=== PATIENT | female | born 1960 | race Caucasian/White ===

== ENCOUNTER → 2016-12-26 | Outpatient (CLI) | payer BC ==
[~2016-12-26] MED LIST: ALLGUNK; ASPUNK; CLXUNK; FRRS300; LMCUNK; PRTUNK; ZCRUNK
== END | disposition home or self-care (01) ==
LOC: C.LABMFLN 11:44
PROVIDERS: ATTEND Psychiatry & Neurology Neurology
DX: G40.219 Localization-related (focal) (partial) symptomatic epilepsy and epileptic syndromes with complex partial seizures, intractable, without status epilepticus (principal)

== ENCOUNTER → 2017-01-16 | Outpatient (CLI) | payer BC | END | disposition home or self-care (01) | LOC: C.PATHSPEC 10:57 | PROVIDERS: ATTEND Family Medicine | DX: L98.0 Pyogenic granuloma (principal) ==

== ENCOUNTER → 2017-07-07 | Outpatient (CLI) | payer BC ==
[2017-07-07 13:44] LABS: BASO % 0.8 %; BASO ABS # 0.04 K/uL (0-0.2); COMPLETE YES; HEMATOCRIT 38.4 % (37-47); LYMPH % 26.4 %; LYMPH ABS # 1.31 K/uL (1.2-3.4); MEAN CELL VOLUME 92.1 fL (80-100); MEAN CORPUSCULAR HEMOGLOBIN 32.4 pg (25-34); MEAN CORPUSCULAR HGB CONC 35.2 g/dl (32-36); MEAN PLATELET VOLUME 10.2 fL (7.4-10.4); MONO % 5.4 %; NEUT % 63.4 %; PLATELET COUNT 178 K/uL (130-400); RED BLOOD COUNT 4.17 M/uL (4.2-5.4); WHITE BLOOD COUNT 4.97 K/uL (4.8-10.8)
[2017-07-07 15:19] LABS: BLOOD UREA NITROGEN 10 mg/dl (7-18); BUN/CREATININE RATIO 12.8 (10-20); CALCIUM 9.2 mg/dl (8.5-10.1); CARBON DIOXIDE 26 mmol/L (21-32); CHLORIDE 103 mmol/L (98-107); CREATININE 0.78 mg/dl (0.60-1.20); GLUCOSE 96 mg/dl (70-99); POTASSIUM 3.9 mmol/L (3.5-5.1); SODIUM 136 mmol/L (136-145)
[2017-07-07 15:22] LABS: ALB/GLOB RATIO 1.1 (0.9-2); ALKALINE PHOSPHATASE 104 U/L (45-117); ALT/SGPT 23 U/L (12-78); AST/SGOT 17 U/L (15-37)
== END | disposition home or self-care (01) ==
LOC: C.LABMFLN 11:37
PROVIDERS: ATTEND Psychiatry & Neurology Neurology
DX: G40.109 Localization-related (focal) (partial) symptomatic epilepsy and epileptic syndromes with simple partial seizures, not intractable, without status epilepticus (principal)

== ENCOUNTER → 2017-09-01 | Outpatient (CLI) | payer BC | END | disposition home or self-care (01) | LOC: C.LABMFLN 11:30 | PROVIDERS: ATTEND Family Medicine | DX: J02.9 Acute pharyngitis, unspecified (principal) ==

== ENCOUNTER → 2017-09-23 | Outpatient (CLI) | payer BC | END | disposition home or self-care (01) | LOC: C.LABMFLN 16:03 | PROVIDERS: ATTEND Psychiatry & Neurology Neurology | DX: G40.909 Epilepsy, unspecified, not intractable, without status epilepticus (principal) ==

== ENCOUNTER 2022-10-31 12:14 | Inpatient (IN) ==
[2022-10-31] MEDS ORDERED: ONDANSETRON INJ 2 MG/ML 2 ML VIAL IV STA (13:30)
--- NOTE | 2022-10-31 14:33 | CT Scan Report ---
CT head/brain wo con CLINICAL HISTORY: Stroke Alert Technique: Contiguous axial CT images of the head were acquired from the base of the skull to the agusto ashley without intravenous contrast administration. Images were viewed in brain, subdural and bone [facility] ws. Automated dose lowering techniques and/or adjustment according to patient size were utilized for this exam. Comparison: None available at the time of this dictation. Findings: Old encephalomalacia is in the left temporal lobe with associated postsurgical changes of the calvari um. Atherosclerotic disease is seen in the carotid siphons and vertebral arteries. Linear calcific de nsity in the right posterior fossa is nonspecific and likely chronic Imaged portions of the paranasal sinuses and mastoid air cells are clear. The orbits appear normal. There are no acute fractures of the calvaria or scalp swelling. Impression: Old left postsurgical changes and encephalomalacia. No acute abnormalities and in particular no evide nce of infarct or hemorrhage. ACT 112: Negative or not required by law. Electronically signed by: Acosta Coleman M.D. 10/31/2022 2:31 PM
[2022-10-31 16:53] LABS: Hematocrit (blood only) 38.3 % (34.1-44.9); Hemoglobin 12.8 g/dl (12.0-16.0); Mean Corpuscular Hemoglobin 31.4 pg (25.0-34.0); Mean Corpuscular Hgb Conc 33.4 g/dL (32.0-36.0); Mean Corpuscular Volume 94.1 fL (80.0-100.0); Mean Platelet Volume 10.7 fL (9.4-12.3); Platelet Count 145 K/uL (130-400); RDW Coefficient of Variation 13.2 % (11.5-14.5); RDW Standard Deviation 45.1 fL (36.4-46.3); Red Blood Count 4.07 M/uL (3.93-5.22)
[2022-10-31 17:10] LABS: Partial Thromboplastin Time 28.5 Seconds (21.0-31.0); Prothrombin Time 10.7 Seconds (9.0-12.0)
[2022-10-31 17:15] LABS: Alanine Aminotransferase 10 U/L (7-52); Albumin Globulin Ratio 1.4 (0.9-2); Albumin Level 4.2 gm/dl (3.4-5.0); Alkaline Phosphatase 107 U/L (34-104); Anion Gap 9 (3-11); Aspartate Aminotransferase 23 U/L (13-39); BUN Creatinine Ratio 15.4 (10-20); Bilirubin,Total 0.8 mg/dl (0.2-1.0); Blood Urea Nitrogen 16 mg/dl (6-23); Carbon Dioxide 23 mmol/L (21-32); Chloride 106 mmol/L (98-107); Est GFR (African American) 65.8 ml/min; Est GFR (Non-African American) 56.7 ml/min; Globulin 3.1 gm/dl (2.5-4.0); Glucose 106 mg/dl (70-99(Fasting)); Magnesium 2.2 mg/dl (1.7-2.4); Potassium 3.2 mmol/L (3.5-5.1); Sodium 138 mmol/L (136-145); Total Protein 7.3 gm/dl (6.0-8.3)
[2022-10-31] MEDS ORDERED: ONDANSETRON INJ 2 MG/ML 2 ML VIAL ONE (17:15)
--- NOTE | 2022-10-31 18:12 | Emergency Department Note ---
Impression & Plan Ataxia, Dizziness ED Provider Note NAME: FRANCES KEVIN AGE: 62 SEX: F : 1960 ARRIVES VIA: Walk-In INFORMANT: Patient, ED PROVIDER(S): Gage Jean DO CHIEF COMPLAINT: Ataxia HPI: The patient is a 62-year-old female who presented to the emergency department for an evaluation of dizziness and weakness. The patient has had problems for the last 2 days with ambulation. Her significant other states that she has been having problems with ambulation and seems to be following to the side. She seems to be very off balance. She has had no headache. She has had no vomiting. She reports no seizure activity. She has a vagal nerve stimulator which was implanted for seizures. She denies having any vomiting. She is often seen by her family doctor for the symptoms. ROS: See above HPI for pertinent positives & negatives. A total of 10 systems reviewed and were otherwise negative. PAST MEDICAL HISTORY: See Below PAST SURGICAL HISTORY: See Below FAMILY HISTORY: See Below SOCIAL HISTORY: See Below HOME MEDICATIONS: See Below ALLERGIES: See Below VITALS: See Below PHYSICAL EXAMINATION: GENERAL: Patient is awake alert in no acute distress patient is resting comfortably and showing no signs of anxiety EYES: The conjunctivae are clear. The pupils are round and reactive. EARS, NOSE, MOUTH AND THROAT: The nose is without any evidence of any deformity. NECK: The neck is nontender and supple. RESPIRATORY: Normal respiratory effort is noted there is no evidence of wheezing rhonchi or rales CARDIOVASCULAR: Regular rate and rhythm noted there no murmurs rubs or gallops normal S1 normal S2. GASTROINTESTINAL: The abdomen is soft. Abdomen is nontender. MUSCULOSKELETAL/EXTREMITIES: There is no evidence of gross deformity full range of motion is noted in the hips and shoulders. SKIN: There is no obvious evidence of any rash. There are no petechiae, pallor or cyanosis noted. NEUROLOGIC: Patient is awake alert and oriented x3. The patient is able to hold each leg off the bed for greater than 5 seconds. There was nystagmus looking to the left. MEDICAL DECISION MAKING: The patient is a 62-year-old female who presented to the emergency department for an evaluation of ataxia. The patient's had a history of vertigo in the past but states this feels different. The patient did not have any focal neurologic deficit on my exam but did have some nystagmus and when she tried to ambulate appeared to be very off balance. I discussed patient's laboratory and radiographic studies with her. She was reevaluated multiple times. It is difficult to do a complete neurologic work-up on this patient given her history of vagal nerve stimulator. I discussed her condition with the on-call [facility]. They have agreed to evaluate the patient in the emergency department for further management and disposition. Is possible she may require further inpatient work-up to determine the cause of the symptoms. Triage Nursing notes reviewed. Prior medical records reviewed Vital Signs: reviewed and remarkable for hypotension. Differential diagnosis: Benign positional vertigo, dehydration, hypovolemia, anemia, tumor, infection, hypoglycemia, electrolyte abnormalities, cardiac sources, intracerebral event, toxicologic, neurologic, as well as other pathologies. ER treatment provided: See below Diagnostics interpreted by me: ECG: EKG was obtained in the emergency department. My interpretation is normal sinus rhythm at 80 bpm. There is no ectopy. Nonspecific ST abnormalities were noted. Early transition was noted. No previous tracing was available. Cardiac Monitoring: An order was placed for continuous cardiac monitoring. The monitor shows a rate of 90 bpm with sinus rhythm. Laboratory studies: As stated above and show below. Imaging studies: See below Consultation(s): I discussed this case with Dr. Weeks who is on-call for the [facility]. Past Med/Surg History Medical History Abnormal weight loss Change in bowel habit Chronic GERD Chronic headaches Diarrhea Diplopia Dysuria Herpes zoster History of Clostridioides difficile colitis Hypokalemia Intractable seizure disorder Nausea and vomiting Nausea and vomiting Seizure disorder Shingles (herpes zoster) polyneuropathy Vertigo Vertigo Surgical History History of section History of mandibular surgery History of sinus surgery History of tubal ligation Family History Mother Thyroid disease Brother Thyroid disease Social History Smoking Status: Never smoker Hx Alcohol Use: No Hx Substance Use: No Preferred Language: Turkmen Communication Ability: Effective Visual Impairment: No Limitations Hearing Ability: Normal Director Of Curriculum And Instruction Required: No Beliefs That Will Affect Care: None marital status: Current Living Situation: Spouse Feels Safe at Home: Yes Safety Concerns: Feels Safe At This Time Dental Care, Regularly: Yes Seatbelt Use: always Sunscreen Use: Yes Assistive Devices: Glasses and Walker Allergies Allergies Allergy/AdvReac Type Severity Reaction Status Date / Time hydroxyzine Allergy Unknown unknown rxn Verified 01/10/22 13:18 prednisone Allergy Unknown unknown rxn Verified 01/10/22 13:18 paroxetine AdvReac Fatigued Verified 01/10/22 13:18 Home Meds Home Medications Medication Instructions Recorded Confirmed multivitamin (Multiple Vitamins 1 tab PO DAILY 05/10/19 10/31/22 tablet) clonazepam 0.5 mg disintegrating See Rx Instructions PO .COMPLEX 05/12/19 10/31/22 tablet clobazam 10 mg tablet (Onfi) See Rx Instructions PO BID 11/01/19 10/31/22 zonisamide 100 mg capsule 200 mg PO BID 01/14/21 10/31/22 (Zonegran) glucosamine sulf dipot 1 cap PO DAILY 10/31/22 10/31/22 chlr,msm,chond 550 mg-C 30 mg-chalino 1 mg capsule (Glucosamine Chondroitin) Previous Rx's Medication Instructions Recorded fexofenadine 60 mg tablet (Anusha 60 mg PO DAILY #60 tabs 05/09/19 Allergy) lamotrigine 300 mg tablet,extended 300 mg PO BID #60 tabs 01/14/21 release 24 hr lamotrigine 50 mg tablet,extended 50 mg PO .COMPLEX #270 tabs 01/14/21 release 24 hr atorvastatin 80 mg tablet 80 mg PO QPM #90 tabs 04/02/21 venlafaxine 37.5 mg tablet 37.5 mg PO DAILY #90 tabs 06/11/21 meclizine 25 mg tablet 25 mg PO TID PRN dizziness #90 tabs 01/10/22 ondansetron HCl 8 mg tablet 8 mg PO Q8H PRN nausea and 01/10/22 vomiting #30 tabs potassium chloride 10 mEq 10 meq PO DAILY #30 tabs 01/13/22 tablet,extended release meclizine 25 mg tablet 25 mg PO BID dizziness #180 tabs 03/27/22 omeprazole 40 mg capsule,delayed 40 mg PO QAM #90 caps 03/27/22 release amoxicillin 875 mg-potassium 1 tab PO BID #20 tabs 07/07/22 clavulanate 125 mg tablet nystatin 100,000 unit/gram topical 1 applic topical TID #60 grams 09/02/22 powder Results & Data (ED) Vital Signs Vital Signs - 24 hr 10/31/22 12:21 10/31/22 17:00 10/31/22 17:57 Temperature 37.0 C Temperature Source Temporal Artery Scan Pulse Rate 93 H Pulse Strength Normal Respiratory Rate 20 19 Respiratory Effort / Characteristics Non-Labored Non-Labored Respiratory Depth Normal Normal Respiratory Pattern Regular Blood Pressure 95/64 L Blood Pressure [Right Arm] 130/75 Blood Pressure Mean 74 Blood Pressure Mean [Right Arm] 93 Blood Pressure Position Sitting Blood Pressure Position [Right Arm] Lying Pulse Oximetry 97 95 Oxygen Delivery Method Room Air Room Air Room Air Sepsis Recent Fever Within 48 Hours No Sepsis New/Unexplained Change in Mental Status Yes Sepsis Action Taken by Nursing No Action Required Home Medications Current Medication List: was personally reviewed by me Laboratory Data Attestation: I reviewed the patient's lab results. Result diagrams: 10/31/22 16:36 10/31/22 16:36 Lab Results 10/31/22 10/31/22 10/31/22 Range/Units 16:36 16:36 16:36 WBC 9.40 (4.8-10.8) K/ul RBC 4.07 (3.93-5.22) M/uL Hgb 12.8 (12.0-16.0) g/dl Hct 38.3 (34.1-44.9) % MCV 94.1 (80.0-100.0) fL MCH 31.4 (25.0-34.0) pg MCHC 33.4 (32.0-36.0) g/dL RDW Std Deviation 45.1 (36.4-46.3) fL RDW Coeff of Blank 13.2 (11.5-14.5) % Plt Count 145 (130-400) K/uL MPV 10.7 (9.4-12.3) fL PT 10.7 (9.0-12.0) Seconds INR 1.0 (0.9-1.1) APTT 28.5 (21.0-31.0) Seconds PTT Ratio 1.0 Sodium 138 (136-145) mmol/L Potassium 3.2 L (3.5-5.1) mmol/L Chloride 106 (98-107) mmol/L Carbon Dioxide 23 (21-32) mmol/L Anion Gap 9 (3-11) BUN 16 (6-23) mg/dl Creatinine 1.04 (0.6-1.2) mg/dl Est Cr Clr Drug Dosing Not Reportable Est GFR ( Amer) 65.8 ml/min Est GFR (Non-Af Amer) 56.7 ml/min BUN/Creatinine Ratio 15.4 (10-20) Glucose 106 H (70-99(Fasting)) mg/dl Calcium 9.0 (8.5-10.1) mg/dl Magnesium 2.2 (1.7-2.4) mg/dl Total Bilirubin 0.8 (0.2-1.0) mg/dl AST 23 (13-39) U/L ALT 10 (7-52) U/L Alkaline Phosphatase 107 H (34-104) U/L Total Creatine Kinase (26-192) U/L Troponin I High Sens (0-14) pg/ml Total Protein 7.3 (6.0-8.3) gm/dl Albumin 4.2 (3.4-5.0) gm/dl Globulin 3.1 (2.5-4.0) gm/dl Albumin/Globulin Ratio 1.4 (0.9-2) 10/31/22 10/31/22 Range/Units 16:36 16:36 WBC (4.8-10.8) K/ul RBC (3.93-5.22) M/uL Hgb (12.0-16.0) g/dl Hct (34.1-44.9) % MCV (80.0-100.0) fL MCH (25.0-34.0) pg MCHC (32.0-36.0) g/dL RDW Std Deviation (36.4-46.3) fL RDW Coeff of Blank (11.5-14.5) % Plt Count (130-400) K/uL MPV (9.4-12.3) fL PT (9.0-12.0) Seconds INR (0.9-1.1) APTT (21.0-31.0) Seconds PTT Ratio Sodium (136-145) mmol/L Potassium (3.5-5.1) mmol/L Chloride (98-107) mmol/L Carbon Dioxide (21-32) mmol/L Anion Gap (3-11) BUN (6-23) mg/dl Creatinine (0.6-1.2) mg/dl Est Cr Clr Drug Dosing Est GFR ( Amer) ml/min Est GFR (Non-Af Amer) ml/min BUN/Creatinine Ratio (10-20) Glucose (70-99(Fasting)) mg/dl Calcium (8.5-10.1) mg/dl Magnesium (1.7-2.4) mg/dl Total Bilirubin (0.2-1.0) mg/dl AST (13-39) U/L ALT (7-52) U/L Alkaline Phosphatase (34-104) U/L Total Creatine Kinase 1069 H (26-192) U/L Troponin I High Sens 9.1 (0-14) pg/ml Total Protein (6.0-8.3) gm/dl Albumin (3.4-5.0) gm/dl Globulin (2.5-4.0) gm/dl Albumin/Globulin Ratio (0.9-2) Administered Medications Atorvastatin Calcium (Atorvastatin 40 Mg Tab) 80 mg PO QPM MIGUEL Stop: 11/30/22 21:07 Last Admin: 10/31/22 21:54 Dose: 80 mg Documented By: Lactated Ringer's (Lr) 1,000 mls @ 100 mls/hr IV .Q10H MIGUEL Stop: 11/01/22 15:29 Last Admin: 10/31/22 21:18 Dose: 100 mls/hr Documented By: Meclizine HCl (Meclizine Hcl 25 Mg Tab) 25 mg PO BID MIGUEL Stop: 11/30/22 21:07 Last Admin: 10/31/22 21:54 Dose: 25 mg Documented By: Miscellaneous (Lamotrigrine 50 Mg Er Tablet - Order Awaiting Action) 1 each N/A QS [facility] Stop: 11/30/22 21:29 Last Admin: 10/31/22 23:53 Dose: Not Given Documented By: Miscellaneous (Lamotrigine 300 Mg Tablet Extended Release 24hr - Order Awaiting Action) 1 each N/A QS [facility] Stop: 11/30/22 21:29 Last Admin: 10/31/22 23:53 Dose: Not Given Documented By: Miscellaneous (Zonisamide - Order Awaiting Action) 1 each N/A QS M[facility]UEL Stop: 11/30/22 21:29 Last Admin: 10/31/22 23:54 Dose: Not Given Documented By: Miscellaneous (Clobazam - Order Awaiting Action) 1 each N/A QS MIGUEL Stop: 11/30/22 21:29 Last Admin: 10/31/22 23:53 Dose: Not Given Documented By: Discontinued Medications Clobazam (Clobazam 10 Mg Tab) 15 mg PO QPM MIGUEL Stop: 11/30/22 21:07 Last Admin: 10/31/22 21:51 Dose: Not Given Documented By: Ondansetron HCl (Ondansetron Inj 2 Mg/Ml 2 Ml Vial) 4 mg IV NOW STA Stop: 10/31/22 13:31 Last Admin: 10/31/22 17:50 Dose: Not Given Documented By: RDD Ondansetron HCl (Ondansetron Inj 2 Mg/Ml 2 Ml Vial) Confirm Administered Dose 4 mg .ROUTE .STK-MED ONE Stop: 10/31/22 17:16 Last Admin: 10/31/22 17:50 Dose: Not Given Documented By: RDD Potassium Chloride (Potassium Chloride Crtab 20 Meq Tabcr) 40 meq PO BID STA Stop: 10/31/22 19:45 Last Admin: 10/31/22 21:51 Dose: Not Given Documented By: Potassium Chloride (Potassium Chloride Crtab 20 Meq Tabcr) 40 meq PO Q2H MIGUEL Stop: 10/31/22 22:01 Last Admin: 10/31/22 23:49 Dose: 40 meq Documented By: Admin: 10/31/22 21:53 Dose: 40 meq Documented By: Zonisamide (Zonisamide 100 Mg Capsule) 200 mg PO BID MIGUEL Stop: 11/30/22 21:07 Last Admin: 10/31/22 21:51 Dose: Not Given Documented By: Imaging Data Radiologist's Impression: Head CT 10/31/22 12:29 CT head/brain wo con CLINICAL HISTORY: Stroke Alert Technique: Contiguous axial CT images of the head were acquired from the base of the skull to the vertex without intravenous contrast administration. Images were viewed in brain, subdural and bone windows. Automated dose lowering techniques and/or adjustment according to patient size were utilized for this exam. Comparison: None available at the time of this dictation. Findings: Old encephalomalacia is in the left temporal lobe with associated postsurgical changes of the calvarium. Atherosclerotic disease is seen in the carotid siphons and vertebral arteries. Linear calcific density in the right posterior fossa is nonspecific and likely chronic Imaged portions of the paranasal sinuses and mastoid air cells are clear. The orbits appear normal. There are no acute fractures of the calvaria or scalp swelling. Impression: Old left postsurgical changes and encephalomalacia. No acute abnormalities and in particular no evidence of infarct or hemorrhage. ACT 112: Negative or not required by law. Electronically signed by: Acosta Coleman M.D. 10/31/2022 2:31 PM Discharge Plan Visit Data Chief Complaint: Weakness Stated Complaint: WEAK, DIZZY ED Provider: Gage Jean Discharge Problem: Ataxia, Dizziness Patient Disposition: Admitted As Inpatient Discharge Instructions Interventions: ED Discharge Assessment Last Done: 10/31/22 20:40
--- NOTE | 2022-10-31 18:33 | History & Physical Report ---
Date of Service October 31, 2022 Assessment & Plan (1) Ataxia: Plan: -Admit to med tele -Patient is currently afebrile, hemodynamically stable, and stable on RA -Patient appears to be having a steady decline in function and ADLs with 2 falls over the past week -Patient and her think that he function continues to worsen -CT of the head is negative for acute findings, will have to wait to get MRI until she is seen by Neurology and we can determine if she can have one with her Vagal nerve stimulator -Will continue meclizine for dizziness -Patient's medications including lamicatal, clobazam, and zonisamide all have side effects of ataxia, possibly could be related to polypharmacy -Attempted to call the vagal nerve stimulation contact number but no one answered. Would try again tomorrow -AM CBC and BMP in the am (2) Hypokalemia: Plan: -Noted to be 3.2 today in the ED, has a history of hypokalemia -Likely related to poor oral intake as well -Mag is WNL -Will give 40 meq PO KCL x two doses -Monitor AM BMP (3) Vertigo: Plan: -Continue meclizine (4) Seizure disorder: Plan: -Continue lamictal, Zonisamide, and clobazam (5) Generalized anxiety disorder: Plan: -continue venlafaxine (6) Dyslipidemia: Plan: -continue statin (7) Depression: Plan: -continue venlafaxine (8) Benign essential hypertension: Plan: -Hemodynamically stable -Not on antihypertensives, continue to monitor (9) Obstructive sleep apnea: Plan: -HS CPAP ordered Plan The patient was discussed with Dr. Weeks at the time of the admission History of Present Illness Chief Complaint: Ataxia Primary Care Provider: Gerardo Zarate MD Cherelle is a 62 year old female with a PMH significant for seizure disorder S/P implanted vagal nerve stimulator and removal of a portion of her left front lobe at the [facility] approximately 8 years ago, GERD, nocturnal hypoxemia and obstructive sleep apnea, HTN, hyperlipidemia who presented to the [facility] ED on 10/31/22 for dizziness and weakness. In the ED the patient was found to be afebrile, hemodynamically stable, and stable on RA. Labs were remarkable for a CBC WNL, stable renal function, potassium of 3.2 with stable mag of 2.2. CT of the head without contrast showed "Old left postsurgical changes and encephalomalacia. No acute abnormalities and in particular no evidence of infarct or hemorrhage.". Initially the ED staff were planning on getting an MRI of the brain for further evaluation but they were unsure if she would be able to have one due to her implanted vagal nerve stimulator. We were asked to admit the patient for observation and Neurology consult for assistance with further evaluation. Prior to admission the patient was given 4 mg IV zofran. At the time of the exam the patient was resting comfortably in bed in no acute distress with her sitting bedside, history was obtained from both. They state that at baseline the patient has has intermittent memory issues, is able to ambulate short distances without the use of a walker or cane, does not have asymmetrical weakness, and has poor baseline functioning in relation to ADLs. Her states that she has not been eating or drinking well and had a mechanical fall approximately 2 days ago when she was trying to reach something in one of their cabinets. Her states that he worked the shift foreman last night and found her on the ground this morning when he got home, they are not sure how long she was down for. The patient herself does not remember the details surrounding her fall. Her states that the patient has had more memory issues over the past few months, thinking that she needs to call someone on the phone who is in the house with her. She denies recent fevers, chills, headache, chest pain, SOB, abdominal pain, nausea, vomiting, diarrhea, dysuria, and hematuria. They explained that the patient follows with her Neurology at the [facility], where she had the stimulator and previous brain procedure performed. Since her procedure the patient no longer has seizures but gets auras and headaches instead. Her gave me a contact number to help coordinate a possible MRI with her Vagal Nerve Stimulator ([phone]). They deny any recent medication changes. I had a long discussion with the patient and her regarding code status, the patient wishes to be a DNR/DNI as her quality of life has been poor since her previous procedures. Her would make decisions for her if she could not make them herself. Please refer to Dr. Weeks's attestation for any changes to the treatment plan. Allergies Allergy/AdvReac Type Severity Reaction Status Date / Time hydroxyzine Allergy Unknown unknown rxn Verified 01/10/22 13:18 prednisone Allergy Unknown unknown rxn Verified 01/10/22 13:18 paroxetine AdvReac Fatigued Verified 01/10/22 13:18 Home Medications Medication Instructions Recorded Confirmed Type fexofenadine 60 mg tablet (Anusha 60 mg PO DAILY #60 tabs 05/09/19 10/31/22 Rx Allergy) multivitamin (Multiple Vitamins 1 tab PO DAILY 05/10/19 10/31/22 History tablet) clonazepam 0.5 mg disintegrating See Rx Instructions PO .COMPLEX 05/12/19 10/31/22 History tablet clobazam 10 mg tablet (Onfi) See Rx Instructions PO BID 11/01/19 10/31/22 History lamotrigine 300 mg tablet,extended 300 mg PO BID #60 tabs 01/14/21 10/31/22 Rx release 24 hr lamotrigine 50 mg tablet,extended 50 mg PO .COMPLEX #270 tabs 01/14/21 10/31/22 Rx release 24 hr zonisamide 100 mg capsule 200 mg PO BID 01/14/21 10/31/22 History (Zonegran) atorvastatin 80 mg tablet 80 mg PO QPM #90 tabs 04/02/21 10/31/22 Rx venlafaxine 37.5 mg tablet 37.5 mg PO DAILY #90 tabs 06/11/21 10/31/22 Rx meclizine 25 mg tablet 25 mg PO TID PRN dizziness #90 tabs 01/10/22 10/31/22 Rx ondansetron HCl 8 mg tablet 8 mg PO Q8H PRN nausea and 01/10/22 10/31/22 Rx vomiting #30 tabs potassium chloride 10 mEq 10 meq PO DAILY #30 tabs 01/13/22 10/31/22 Rx tablet,extended release meclizine 25 mg tablet 25 mg PO BID dizziness #180 tabs 03/27/22 10/31/22 Rx omeprazole 40 mg capsule,delayed 40 mg PO QAM #90 caps 03/27/22 10/31/22 Rx release amoxicillin 875 mg-potassium 1 tab PO BID #20 tabs 07/07/22 10/31/22 Rx clavulanate 125 mg tablet nystatin 100,000 unit/gram topical 1 applic topical TID #60 grams 09/02/22 10/31/22 Rx powder glucosamine sulf dipot 1 cap PO DAILY 10/31/22 10/31/22 History chlr,msm,chond 550 mg-C 30 mg-chalino 1 mg capsule (Glucosamine Chondroitin) Past Med/Surg History Medical History Abnormal weight loss Change in bowel habit Chronic GERD Chronic headaches Diarrhea Diplopia Dysuria Herpes zoster History of Clostridioides difficile colitis Hypokalemia Intractable seizure disorder Nausea and vomiting Nausea and vomiting Seizure disorder Shingles (herpes zoster) polyneuropathy Vertigo Vertigo Surgical History History of section History of mandibular surgery History of sinus surgery History of tubal ligation Family History Mother Thyroid disease Brother Thyroid disease Social History Smoking Status: Never smoker Hx Alcohol Use: No Hx Substance Use: No Preferred Language: [place] Leonean Visual Impairment: No Limitations Hearing Ability: Normal marital status: Current Living Situation: Spouse Feels Safe at Home: Yes Dental Care, Regularly: Yes Seatbelt Use: always Sunscreen Use: Yes Review of Systems Review of Systems: Denies current fever, chills, headache, changes in vision, hearing, taste, and smell, chest pain, SOB, cough, abdominal pain, nausea, vomiting, diarrhea, hematemesis, melena, dysuria, hematuria. All systems have been reviewed and are otherwise negative. Physical Exam Physical Exam: Physical Exam: General: In no acute distress, stated age, chronically ill-appearing, non- toxic appearing HEENT: Normocephalic, atraumatic, no scleral icterus, pupils around round, symmetrical, and reactive to light, moist mucus membranes, trachea midline, no thyromegaly Chest/Pulm: No respiratory distress, symmetrical chest expansion, clear breath sounds throughout Cardiac: RRR, no murmurs noted Abdomen: Negative for ascites and bruising, normoactive bowel sounds, soft, non-tender to palpation throughout Musculoskeletal: Symmetrical and without signs of acute trauma, upper and lower extremities with full ROM, no atrophy, spasticity, or flaccidity Extremities: Radial, dorsalis pedis, and posterior tibial pulses are intact and symmetrical, no edema noted in the BL LE's Skin: Warm, dry, no rashes , lesions, or scars noted Neuro: Alert and oriented to person, place, month, year, and president, patient's speech is slow at baseline, symmetrical strenght in the BL upper and lower extremities, CN II-XII tested and intact, resting tremor noted Psych: No acute distress, calm and cooperative during the exam Results & Data Results & Data ([facility]) Vital Signs (Past 12 Hours) Vital Signs Temp Pulse Resp BP BP Pulse Ox O2 Del Method 10/31/22 17:57 Room Air 10/31/22 17:00 19 130/75 95 Room Air 10/31/22 12:21 37.0 C 93 H 20 95/64 L 97 Room Air Laboratory Results Abnormal lab results 10/31/22 Range/Units 16:36 Potassium 3.2 L (3.5-5.1) mmol/L Glucose 106 H (70-99(Fasting)) mg/dl Alkaline Phosphatase 107 H (34-104) U/L Diagnostic Findings Head CT 10/31/22 12:29 CT head/brain wo con CLINICAL HISTORY: Stroke Alert Technique: Contiguous axial CT images of the head were acquired from the base of the skull to the vertex without intravenous contrast administration. Images were viewed in brain, subdural and bone windows. Automated dose lowering techniques and/or adjustment according to patient size were utilized for this exam. Comparison: None available at the time of this dictation. Findings: Old encephalomalacia is in the left temporal lobe with associated postsurgical changes of the calvarium. Atherosclerotic disease is seen in the carotid siphons and vertebral arteries. Linear calcific density in the right posterior fossa is nonspecific and likely chronic Imaged portions of the paranasal sinuses and mastoid air cells are clear. The orbits appear normal. There are no acute fractures of the calvaria or scalp swelling. Impression: Old left postsurgical changes and encephalomalacia. No acute abnormalities and in particular no evidence of infarct or hemorrhage. ACT 112: Negative or not required by law. Electronically signed by: Acosta Coleman M.D. 10/31/2022 2:31 PM ECG Additional Comments: Normal sinus rhythm Possible Left atrial enlargement ST & T wave abnormality, consider inferolateral ischemia Abnormal ECG No previous ECGs available Code Status & VTE Plan Code Status DNR/DNI VTE Prophylaxis Plan VTE Prophylaxis will be ordered: Yes Supervising Physician Co-Signing Physician Notes Patient was seen and examined independently I discussed the case with Jack MARVIN I reviewed pertinent past medical social family history and also the plan of care and agree with the plan of care. at the bedside provides some history there have been no new changes to any of her antiepileptic medications. Patient reports a 4-day history of progressive dizziness or gait instability. This is unusual for her. She is had some minor nausea. Otherwise she said no new changes in her health. Examination shows her to have some nystagmus worse when eyes deviated to the right to the left she is a few beats of nystagmus that extinguishes. Her dizziness is exacerbated by symptoms change of position of her body and her head. Otherwise she is in her normal neurological states she does have a history of a partial craniotomy and also vagal nerve stimulator. Physical examination is fairly benign with exception of the nystagmus. 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 Initial imaging of his CT of her brain is without acute changes. MRI of her brain needs to be postponed given her vagal nerve stimulator and unclear compatibility with MRI. Patient typically sees [facility] for her neurological follow ups Any exceptions will be noted below PG Care Time/CCT Total # of Minutes Spent Total Time Spent with Patient: Total time spent is greater than 50% in coordination of care (as documented) at patient's floor/unit and/or counseling patient: Coding Level of Care Code Established Pt INT OBSERVATION CARE 70M LVL 3 Patient Type Established History Comprehensive Exam Comprehensive Medical Decision Making High Complexity Diagnoses Ataxia R27.0 Hypokalemia E87.6 Vertigo R42 Seizure disorder G40.909 Generalized anxiety disorder F41.1 Dyslipidemia E78.5 Depression F32.9 Benign essential hypertension I10 Obstructive sleep apnea G47.33
[2022-10-31] MEDS ORDERED: POTASSIUM CHLORIDE CRTAB 20 MEQ TABCR PO STA (19:44)
--- NOTE | 2022-10-31 20:11 | Electrocardiogram Report ---
Test Reason : Blood Pressure : / mmHG Vent. Rate : 088 BPM Atrial Rate : 088 BPM P-R Int : 142 ms QRS Dur : 084 ms QT Int : 326 ms P-R-T Axes : 024 016 230 degrees QTc Int : 394 ms Normal sinus rhythm Possible Left atrial enlargement Abnormal ECG No previous ECGs available Confirmed by Devaughn Michael ([id number]) on 10/31/2022 8:11:27 PM Referred By: Confirmed By:Moises Michael
[2022-10-31] MEDS ORDERED: LACTATED RINGER'S 1,000 ML IV SCH (20:45)
[2022-10-31] MEDS ORDERED: ZONISAMIDE 100 MG CAPSULE PO SCH (21:08)
[2022-10-31] MEDS ORDERED: CLOBAZAM 10 MG PO SCH (21:08)
[2022-10-31] MEDS: LACTATED RINGER'S 1,000 ML IV SCH (21:18)
[2022-10-31] MEDS: POTASSIUM CHLORIDE CRTAB 20 MEQ TABCR PO SCH ×2 (21:53→23:49)
[2022-10-31] MEDS: MECLIZINE HCL 25 MG TAB PO SCH (21:54)
[2022-10-31] MEDS: ATORVASTATIN 40 MG TAB PO SCH (21:54)
[2022-10-31] MEDS: [UNRECOGNIZED DRUG - OTHER] SCH (23:54)
[2022-11-01] MEDS: [UNRECOGNIZED DRUG - OTHER] SCH (00:23)
[2022-11-01] MEDS ORDERED: CLOBAZAM 10 MG PO ONE (01:30)
[2022-11-01] MEDS: LAMOTRIGINE 50 MG PO SCH ×3 (01:51→19:56)
[2022-11-01] MEDS: ZONISAMIDE 100 MG CAPSULE PO SCH ×3 (01:52→19:56)
[2022-11-01 06:26] LABS: Hematocrit (blood only) 36.1 % (34.1-44.9); Hemoglobin 12.2 g/dl (12.0-16.0); Mean Corpuscular Hemoglobin 31.5 pg (25.0-34.0); Mean Corpuscular Hgb Conc 33.8 g/dL (32.0-36.0); Mean Corpuscular Volume 93.3 fL (80.0-100.0); Mean Platelet Volume 10.9 fL (9.4-12.3); Platelet Count 142 K/uL (130-400); RDW Coefficient of Variation 13.1 % (11.5-14.5); RDW Standard Deviation 44.9 fL (36.4-46.3); Red Blood Count 3.87 M/uL (3.93-5.22); White Blood Count 9.04 K/ul (4.8-10.8)
[2022-11-01] MEDS: LACTATED RINGER'S 1,000 ML IV SCH (06:35)
[2022-11-01 06:58] LABS: BUN Creatinine Ratio 18.5 (10-20); Calcium 8.9 mg/dl (8.5-10.1); Creatinine Clr Calc Pharmacy 65.4 ml/min; Est GFR (African American) 76.3 ml/min; Est GFR (Non-African American) 65.8 ml/min
[2022-11-01] MEDS ORDERED: CLOBAZAM 10 MG PO SCH (09:00)
[2022-11-01] MEDS: CLOBAZAM 10 MG PO SCH ×2 (09:09→20:18)
[2022-11-01] MEDS: PANTOprazole 40 MG TAB PO SCH (09:10)
[2022-11-01] MEDS: VENLAFAXINE HCL 37.5 MG TAB PO SCH (09:10)
[2022-11-01] MEDS: POTASSIUM CHLORIDE 10 MEQ TABCR PO SCH (09:10)
[2022-11-01] MEDS: MULTIVITAMIN TAB PO SCH (09:10)
[2022-11-01] MEDS: MECLIZINE HCL 25 MG TAB PO SCH ×2 (09:10→19:58)
[2022-11-01] MEDS: DICLOFENAC SOD 1% GEL 100 GM TUBE EXT SCH ×4 (09:10→19:55)
[2022-11-01] MEDS: FEXOFENADINE 60 MG TAB PO SCH (09:13)
--- NOTE | 2022-11-01 11:01 | Neurology Consultation ---
Date of Consultation November 01, 2022 Assessment & Plan (1) Dizziness: (2) Ataxia: (3) Temporal lobe epilepsy: Plan 62-year-old female with a history of temporal lobe epilepsy, status post resection of the left anterior temporal lobe and mesial structures in 2016 at the [facility] and subsequent placement of a vagal nerve stimulator. She is on several anticonvulsants including zonisamide, lamotrigine, and clobazam. She continues to follow with a neurologist at the [facility] and reports compliance with her anticonvulsant medications. She has presented with a 2 to 3-day history of dizziness, ataxia, fall. Although she has had vertigo previously, her current symptoms feel different. Although she reportedly has some nystagmus with leftward gaze during her initial assessment in the emergency department, I am unable to reproduce this finding on examination this morning. Lisa-Hallpike is negative. She remains unbalanced and somewhat ataxic appearing. Her speech pattern is somewhat slow and a prosodic which may be related to her history of left temporal lobe resection. She is not aphasic. She does not have an obvious hemiparesis. She does not appear to be dehydrated or systemically ill. Available anticonvulsant levels from this past [place] [facility] within acceptable range. She has been compliant with her medications. The etiology for her recent symptomatology/presentation remains somewhat unclear. Differential diagnosis would include an acute small ischemic infarct, recent subclinical seizure activity, BPPV or other causes of peripheral vertigo. Although MRI would be ideal, she does have a vagal nerve stimulator which precludes obtaining this test at this point in time. Would recommend a follow-up CT of the head including CT angiogram of the head and neck. EEG. Would order up-to-date levels for zonisamide, lamotrigine, and clobazam. Continue with current anticonvulsant dosages. Meclizine as ordered. PT/OT History of Present Illness Reason for Consultation: ataxia Requesting Physician: Dr. Weeks Attending Physician: Raymond Shelby MD History of Present Illness The patient is a 62-year-old female who presented to the emergency department yesterday with a chief complaint of dizziness and weakness that have been present for the previous 2 days. She complains of poor balance, tendency to fall to the side. No associated nausea, tinnitus, or ear fullness or pain. She has had positional vertigo in the past although her current symptoms seem different. 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 Patient seizures have been described as aura, followed by right face versive seizure, followed by generalized tonic-clonic seizure. Has been following with an epileptologist affiliated with the [facility]. Post surgery have been experiencing episodes whereby she wakes up feeling afraid and disoriented. Had an EMU admission for further clarification. Monitoring had revealed continuous left temporal slowing with rare spikes. Is currently on several anticonvulsants including clobazam, lamotrigine, and zonisamide. History also notable for mild to moderate sleep apnea. She has ongoing difficulty with memory and depression and has been seen by psychiatry previously. The patient did have a vagal nerve stimulator placed for further control of her seizures sometime after undergoing temporal lobectomy. Information pertaining to this device was scanned into the record in June 2022. The exact date of implant is not entirely clear in looking through the medical record. The patient reports compliance with her outpatient medication regimen. She denies any recent illness or infection. A CT of the head was negative for hemorrhage or acute process although did reveal postsurgical changes involving the left anterior temporal lobe consistent with her history of left temporal lobectomy for management of epilepsy. I did independently review these images and was able to appreciate this finding as described by the interpreting radiologist. No obvious signs of an acute or chronic cerebellar infarct although CT limited for detection of acute ischemic stroke. Allergies Allergy/AdvReac Type Severity Reaction Status Date / Time hydroxyzine Allergy Unknown unknown rxn Verified 01/10/22 13:18 prednisone Allergy Unknown unknown rxn Verified 01/10/22 13:18 paroxetine AdvReac Fatigued Verified 01/10/22 13:18 Home Medications Medication Instructions Recorded Confirmed Type fexofenadine 60 mg tablet (Anusha 60 mg PO DAILY #60 tabs 05/09/19 10/31/22 Rx Allergy) multivitamin (Multiple Vitamins 1 tab PO DAILY 05/10/19 10/31/22 History tablet) clonazepam 0.5 mg disintegrating See Rx Instructions PO .COMPLEX 05/12/19 10/31/22 History tablet clobazam 10 mg tablet (Onfi) See Rx Instructions PO BID 11/01/19 10/31/22 History lamotrigine 300 mg tablet,extended 300 mg PO BID #60 tabs 01/14/21 10/31/22 Rx release 24 hr lamotrigine 50 mg tablet,extended 50 mg PO .COMPLEX #270 tabs 01/14/21 10/31/22 Rx release 24 hr zonisamide 100 mg capsule 200 mg PO BID 01/14/21 10/31/22 History (Zonegran) atorvastatin 80 mg tablet 80 mg PO QPM #90 tabs 04/02/21 10/31/22 Rx venlafaxine 37.5 mg tablet 37.5 mg PO DAILY #90 tabs 06/11/21 10/31/22 Rx meclizine 25 mg tablet 25 mg PO TID PRN dizziness #90 tabs 01/10/22 10/31/22 Rx ondansetron HCl 8 mg tablet 8 mg PO Q8H PRN nausea and 01/10/22 10/31/22 Rx vomiting #30 tabs potassium chloride 10 mEq 10 meq PO DAILY #30 tabs 01/13/22 10/31/22 Rx tablet,extended release meclizine 25 mg tablet 25 mg PO BID dizziness #180 tabs 03/27/22 10/31/22 Rx omeprazole 40 mg capsule,delayed 40 mg PO QAM #90 caps 03/27/22 10/31/22 Rx release amoxicillin 875 mg-potassium 1 tab PO BID #20 tabs 07/07/22 10/31/22 Rx clavulanate 125 mg tablet nystatin 100,000 unit/gram topical 1 applic topical TID #60 grams 09/02/22 10/31/22 Rx powder glucosamine sulf dipot 1 cap PO DAILY 10/31/22 10/31/22 History chlr,msm,chond 550 mg-C 30 mg-chalino 1 mg capsule (Glucosamine Chondroitin) Patient History Medical History Abnormal weight loss Change in bowel habit Chronic GERD Chronic headaches Diarrhea Diplopia Dysuria Herpes zoster History of Clostridioides difficile colitis Hypokalemia Intractable seizure disorder Nausea and vomiting Nausea and vomiting Seizure disorder Shingles (herpes zoster) polyneuropathy Vertigo Vertigo Surgical History History of section History of mandibular surgery History of sinus surgery History of tubal ligation Family History Mother Thyroid disease Brother Thyroid disease Social History Smoking Status: Never smoker Hx Alcohol Use: No Hx Substance Use: No Preferred Language: [place] Communication Ability: Effective Visual Impairment: No Limitations Hearing Ability: Normal 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 Beliefs That Will Affect Care: None marital status: Current Living Situation: Spouse Feels Safe at Home: Yes Safety Concerns: Feels Safe At This Time Dental Care, Regularly: Yes Seatbelt Use: always Sunscreen Use: Yes Assistive Devices: Glasses and Walker Review of Systems Review of Systems: All systems reviewed & are unremarkable except as noted in Subjective Exam (Neuro) Constitutional: well developed and well nourished Eyes: PERRL and EOM intact bilaterally; + abnormal visual field confrontation (left eye), no fundoscopic abnormality and no papilledema Cardiovascular: Vessels: normal carotid upstroke; no carotid bruit Neurologic: Oriented to:: Person, Place and Time Memory: Short Term Intact and Remote Intact Attention: Span Intact; negative Concentration Intact Speech Fluency: Dysfluency and Other (Speech is mildly aprosodic); negative Dysarthria Speech Aphasia: negative Aphasia Fund of Knowledge: Current Events, Past History and Vocabulary Cranial Nerves: Normal III, IV, (Pupil s are both round and equally reactive to light on the left pupil is slightly larger than the right.), V, VII, VIII, IX, X, XI and XII; Abnorm II Motor Strength: Normal Lower Extremities and Normal Upper Extremities Motor Tone: Normal Lower Extremities and Normal Upper Extremities Muscle Bulk/Involuntary Movements: No Involuntary Movements; negative Muscle Atrophy Sensation: Light Touch Intact, Pain/Temperature Intact, Vibration Intact and Proprioception Intact Coordination: Limited Balance, Finger-Nose Abnormal (slow) and Heel- Gallo Abnormal Deep Tendon Reflexes: Rt Triceps: 2+, Lt Triceps: 2+, Rt Biceps: 2+, Lt Biceps: 2+, Rt Brachioradialis: 2+, Lt Brachioradialis: 2+, Rt Patellar: 2+, Rt Ankle: 1+ and Lt Ankle: 1+ Special Tests: negative Babinski Present Details: Gait cannot be tested in the context of patient's current neurological status. Lisa-Hallpike negative this morning. Results & Data ([facility]) Vital Signs (Past 12 Hours) Vital Signs Temp Pulse Pulse Resp BP BP Pulse Ox 11/01/22 08:26 36.9 C 96 H 18 125/76 94 11/01/22 02:25 87 17 96 11/01/22 04:00 37.2 C 92 H 18 116/70 92 10/31/22 23:50 82 26 H 96 10/31/22 23:01 82 O2 Del Method FiO2 11/01/22 08:26 Room Air 11/01/22 02:25 21 11/01/22 04:00 CPAP 10/31/22 23:50 21 10/31/22 23:01 Laboratory Results WBC 9.04, hemoglobin 12.2, hematocrit 36.1, platelet count 142, sodium 138, potassium 4.0, BUN 17, creatinine 0.92, glucose 101, total CK 1238. Anticonvulsant levels from this past June were reviewed. Zonisamide 18.2, lamotrigine 11.3. Diagnostic Findings CT of the head is as described in the history of present illness. I independently reviewed these images. Electrocardiogram revealed a normal sinus rhythm, possible left atrial enlargement. PG Care Time/CCT Total # of Minutes Spent Total Time Spent with Patient: Total time spent is greater than 50% in coordination of care (as documented) at patient's floor/unit and/or counseling patient: Coding Level of Care Code 01020 Initial Inpt Care Lvl 3 Diagnoses Dizziness R42 Ataxia R27.0 Temporal lobe epilepsy G40.109
--- NOTE | 2022-11-01 16:10 | Hospitalist Progress Note ---
Date of Service November 01, 2022 Assessment & Plan (1) Ataxia: Plan: Appreciate neurological consultation and recommendations. Follow-up head CT scan ordered along with head and neck CTA and EEG. Levels of zonisamide and lamotrigine ordered and pending. MRI scan cannot be done due to presence of vagal nerve stimulator. (2) Hypokalemia: Plan: Replacement therapy underway. Serial labs (3) Vertigo: Plan: Continue meclizine . Supportive care (4) Seizure disorder: Plan: Continue lamictal, Zonisamide, and clobazam . Levels of Lamictal and zonisamide pending (5) Generalized anxiety disorder: Plan: continue venlafaxine (6) Dyslipidemia: Plan: continue statin therapy (7) Depression: Plan: continue venlafaxine (8) Benign essential hypertension: Plan: -Hemodynamically stable . Not on antihypertensives. Continue to monitor (9) Obstructive sleep apnea: Plan: HS CPAP ordered Plan To be determined. Probably will need SNF placement Admission and Anticipated Discharge Date Admission Date: October 31, 2022 Subjective Alert and oriented. No acute distress. Neurology consultation noted. Levels of zonisamide and lamotrigine ordered. Follow-up head CT scan and head and neck CTA ordered along with EEG. All are pending. Eventual disposition will depend on these results. Mycolog cream ordered for the inguinal rash which probably is Rain. OT and PT assessments requested. Continue IV fluids for now at a low rate Review of Systems Review of Systems: Constitutional-no fever or chills ENT-no blurred vision, no double vision, no epistaxis, no sore throat Respiratory-no cough, no wheezing, no shortness of breath Cardiac-no palpitations, no chest pain, no syncope GI-no nausea, vomiting, diarrhea, melena, hematochezia -no urinary retention, no urinary incontinence, no dysuria, no hematuria Musculoskeletal-no joint pain, no muscle tenderness Skin-no bruising, no rashes, no pruritus Neuro-ataxic gait. Generalized weakness. Psych-no depression, no anxiety Physical Exam Physical Exam: General-alert and oriented x3, no fevers, no chills HEENT-head atraumatic and normocephalic, pupils equal and reactive to light, extraocular muscles intact Neck-no lymphadenopathy or thyromegaly, trachea midline Chest-clear to auscultation percussion. No rales wheezing or rhonchi Cardiac-regular rate and rhythm, normal S1 and S2, no murmurs Abdomen-normal bowel sounds, nontender, no hepatosplenomegaly Extremities-no cyanosis, clubbing, or edema Neuro-generalized weakness. No focal deficits . Ataxia noted Psych-normal affect, normal mood Results & Data Results & Data ([facility]) Vital Signs (Past 12 Hours) Vital Signs Temp Pulse Resp BP Pulse Ox Pulse Ox O2 Del Method 11/01/22 15:43 37.1 C 92 H 18 133/80 92 Room Air 11/01/22 14:52 91 11/01/22 12:51 37.5 C 103 H 18 103/70 93 Room Air 11/01/22 08:26 36.9 C 96 H 18 125/76 94 Room Air O2 Flow Rate 11/01/22 15:43 11/01/22 14:52 0 11/01/22 12:51 11/01/22 08:26 Laboratory Results 11/01/22 05:58 11/01/22 05:58 PG Care Time/CCT Total # of Minutes Spent Total Time Spent with Patient: Total time spent is greater than 50% in coordination of care (as documented) at patient's floor/unit and/or counseling patient: Coding Level of Care Code 42993 Subseq Hosp Care Lvl 3 Diagnoses Ataxia R27.0 Hypokalemia E87.6 Vertigo R42 Seizure disorder G40.909 Generalized anxiety disorder F41.1 Dyslipidemia E78.5 Depression F32.9 Benign essential hypertension I10 Obstructive sleep apnea G47.33
[2022-11-01] MEDS ORDERED: OPTIRAY 320 500ml IV ONE (17:35)
--- NOTE | 2022-11-01 18:01 | CT Scan Report ---
UNENHANCED CT OF THE BRAIN; CT ANGIOGRAM OF THE BRAIN; CT ANGIOGRAM OF THE NECK CLINICAL HISTORY: Ataxia. Seizure disorder. COMPARISON STUDY: CT of the brain dated 10/31/2022. TECHNIQUE: Unenhanced axial CT scan of the brain is performed. Subsequently, following the IV adminis tration of 117 of [address] 320, CT angiogram of the head and neck was performed from the aortic arch t o the vertex. Images are reviewed in the axial, sagittal, and coronal planes. 3-D MIPS images are cre ated and assessed. IV contrast was administered without complication. All measurements were calculate d based on NASCET criteria. A dose lowering technique was utilized adhering to the principles of ALA RA. CT DOSE: 1061.80 mGy.cm FINDINGS: Brain parenchyma: There is age-related involutional change noting mild subcortical and periventricula r microangiopathic disease. Left temporal encephalomalacia is unchanged and consistent with a remote insult. There is no hemorrhage, mass effect, or evidence of acute territorial ischemia by CT criteria . There is no evidence of enhancing mass lesion on the angiogram phase images. The ventricles, sulci, and cisterns are prominent secondary to involutional change. Rutherford-white matter differentiation is pr eserved. No extra-axial fluid collection is seen. Thoracic aorta: Visualized portions of the thoracic aorta are normal in caliber. The aortic arch demo nstrates standard 3-vessel anatomy. Right carotid arterial system: The right common carotid artery is widely patent, as are the right int ernal and external carotid arteries. Calcified plaque is seen in the carotid bulb. Left carotid arterial system: The left common carotid artery is widely patent, as are the left international logistics coordinator al and external carotid arteries. Vertebral arteries: The vertebral arteries are widely patent bilaterally noting mild left-sided domin ance. Subclavian arteries: Widely patent bilaterally. Intracranial vasculature: There is atherosclerotic calcification of the cavernous carotid and vertebr al arteries The internal carotid arteries are patent at the skull base, as are the anterior and middl e cerebral arteries bilaterally. The vertebrobasilar system and posterior cerebral arteries are widel y patent. The left vertebral artery is dominant. There is no aneurysm, high-grade stenosis, or focal vessel cut off seen throughout the intracranial circulation. Jugular veins: Patent bilaterally. Dural sinuses: Patent. Lung apices: A right pleural effusion is partially imaged. Upper lobe lung parenchyma is otherwise cl ear as visualized. Soft tissues: The visualized pharyngeal soft tissues are normal in appearance noting angiographic pha se technique. There are numerous calcified tonsillitis. The oropharyngeal airway appears widely paten t. The thyroid gland is heterogeneous. The salivary glands are normal in appearance. No cervical lymp hadenopathy is seen. A lead is noted in the left lower neck. Skeletal structures: The skeletal structures are osteopenic. There is postoperative change from previ ous left temporal craniotomy. The cervical spine is maintained noting mild multilevel spondylosis. No lytic or blastic lesion is seen. Orbits: The bony orbits are intact. Orbital contents are normal as visualized. Sinuses and mastoids: Postsurgical changes noted involving both maxillary antra. There is trace mucos al thickening within the maxillary antra. The remaining paranasal sinuses are clear. The mastoid air cells are well pneumatized. IMPRESSION: 1. Chronic and postoperative findings as above with no hemorrhage, mass effect, or evidence of acute territorial ischemia by CT criteria. 2. Unremarkable CT angiogram of the brain. 3. Unremarkable CT angiogram of the neck. ACT 112: Negative or not required by law. Electronically signed by: Gerardo Grant M.D. 11/01/2022 5:59 PM
[2022-11-01] MEDS: ATORVASTATIN 40 MG TAB PO SCH (19:57)
[2022-11-02 06:20] LABS: Hematocrit (blood only) 34.8 % (34.1-44.9); Hemoglobin 11.3 g/dl (12.0-16.0); Mean Corpuscular Hgb Conc 32.5 g/dL (32.0-36.0); Mean Corpuscular Volume 95.6 fL (80.0-100.0); Mean Platelet Volume 10.6 fL (9.4-12.3); Platelet Count 148 K/uL (130-400); RDW Coefficient of Variation 13.1 % (11.5-14.5); RDW Standard Deviation 46.4 fL (36.4-46.3); Red Blood Count 3.64 M/uL (3.93-5.22); White Blood Count 6.48 K/ul (4.8-10.8)
[2022-11-02 06:53] LABS: BUN Creatinine Ratio 13.8 (10-20); Calcium 8.6 mg/dl (8.5-10.1); Creatinine Clr Calc Pharmacy 76.3 ml/min; Est GFR (African American) 90.3 ml/min; Est GFR (Non-African American) 77.9 ml/min; Potassium 3.5 mmol/L (3.5-5.1)
[2022-11-02] MEDS: MECLIZINE HCL 25 MG TAB PO SCH ×2 (07:58→20:49)
[2022-11-02] MEDS: MULTIVITAMIN TAB PO SCH (07:58)
[2022-11-02] MEDS: VENLAFAXINE HCL 37.5 MG TAB PO SCH (07:58)
[2022-11-02] MEDS: PANTOprazole 40 MG TAB PO SCH (07:59)
[2022-11-02] MEDS: LAMOTRIGINE 50 MG PO SCH ×2 (07:59→20:46)
[2022-11-02] MEDS: POTASSIUM CHLORIDE 10 MEQ TABCR PO SCH ×2 (07:59→20:49)
[2022-11-02] MEDS: NYSTATIN/TRIAMCIN CR 15 GM TUBE EXT SCH (07:59)
[2022-11-02] MEDS: ZONISAMIDE 100 MG CAPSULE PO SCH ×2 (07:59→20:47)
[2022-11-02] MEDS: FEXOFENADINE 60 MG TAB PO SCH (08:00)
[2022-11-02] MEDS: DICLOFENAC SOD 1% GEL 100 GM TUBE EXT SCH ×4 (08:00→20:43)
[2022-11-02] MEDS: CLOBAZAM 10 MG PO SCH ×2 (08:59→20:48)
--- NOTE | 2022-11-02 12:02 | Neurology Progress Note ---
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 It is possible that this patient may have had a small ischemic cerebellar or brainstem infarct which would explain her persistent new onset ataxia and nystagmus. Her CT angiography of the head and neck did not reveal a significant vascular lesion, however. Although not proven, a cardioembolic stroke is possible. Her ECG did reveal possible left atrial enlargement. Would recommend obtaining a transthoracic echocardiogram with bubble study. Furthermore, if there is no specific medical contraindication, I would recommend starting daily baby aspirin for secondary stroke risk reduction in this patient. She is already on high intensity statin therapy, Lipitor 80 mg/day and may continue with this medication. Her blood pressure is normal without antihypertensive medication. She does not have a known history of diabetes mellitus. In addition to the echocardiogram as above, would also consider obtaining 2 to 4- week mobile cardiac outpatient telemetry. An EEG has also been recommended although this patient has not clearly had any convulsive episodes in the context of her current hospitalization. 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 I do not think her new onset persistent ataxia and nystagmus with left gaze would be related to unrecognized subclinical seizure activity. Further, it is also possible that ataxia and nystagmus could be related to polypharmacy/anticonvulsant drug toxicity as she is on multiple anticonvulsants. Yet, relatively recent anticonvulsant levels have been within acceptable range. Up-to-date levels are pending. For this reason, I have not recommended empirically adjusting her anticonvulsant regimen. Her EEG may be completed tomorrow if she remains in the hospital. However, it is unclear at this time if the results of this test would have an immediate impact on her management. Further, it is also possible that she could have atypical BPPV characterized by left beating nystagmus and truncal ataxia to the right while in upright position, but occurring without associated vertigo. Could have physical therapy attempt to treat patient with Wilfredo maneuvers or otolith repositioning exercises. Admission and Anticipated Discharge Date Admission Date: October 31, 2022 Subjective Follow-up for dizziness, ataxia Patient continues to complain of some dizziness and poor balance with attempts at sitting and standing. Has a tendency to list to her right. Denies associated vertigo, diplopia, dysarthria, dysphagia. No associated focal weakness or sensory loss. Has not had any witnessed convulsive episodes in the context of her hospitalization although does have a history of refractory episodic aura as an outpatient, in spite of VNS, and left anterior temporal lobe resection several years ago for refractory epilepsy. CT angiography of the head and neck completed yesterday was negative for any significant vascular lesion, and again, revealed chronic postoperative findings. I did independently review these images. In addition to the lack of obvious vascular abnormalities, there is not appear to be any evidence of an evolving brainstem or cerebellar infarct that may otherwise explain her symptoms. Of course, CAT scan is significantly limited to protect small acute to subacute ischemic infarcts within the posterior fossa. Patient is unable to have MRI at this time given her VNS. Results & Data ([facility]) Vital Signs (Past 12 Hours) Vital Signs Temp Pulse Pulse Resp BP Pulse Ox O2 Del Method 11/02/22 07:42 36.6 C 78 20 120/73 95 Room Air 11/02/22 04:06 80 15 94 11/02/22 03:00 36.6 C 73 18 97/61 L 94 CPAP 11/02/22 00:10 36.7 C 86 16 109/68 95 Room Air 11/02/22 00:40 85 FiO2 11/02/22 07:42 11/02/22 04:06 21 11/02/22 03:00 11/02/22 00:10 11/02/22 00:40 Laboratory Results WBC 6.48, hemoglobin 11.3, hematocrit 34.8, platelet count 148, sodium 140, potassium 3.5, BUN 11, creatinine 0.80, glucose 88, total CK7 41, zonisamide and lamotrigine levels are pending at this time. Diagnostic Findings CT angiography of the head and neck are as described above. Exam (Neuro) Neurologic: Oriented to:: Person, Place and Time Memory: Remote Intact; negative Short Term Intact Attention: Span Intact and Concentration Intact Speech Fluency: Other (Speech is slow, no aphasia or dysarthria) Fund of Knowledge: Past History and Vocabulary Cranial Nerves: Normal II, III, IV, and VII Motor Strength: Normal Lower Extremities and Normal Upper Extremities Muscle Bulk/Involuntary Movements: No Involuntary Movements Coordination: Limited Balance; negative Finger-Nose Abnormal Details: Patient was able to sit up over the edge of the bed although she did exhibit a tendency to list her lean to the right. She also exhibited some nystagmus with leftward gaze in this position. No other localizing signs or symptoms on examination, however. Coding Level of Care Code 26899 Subseq Hosp Care Lvl 3 Diagnoses Ataxia R27.0 Stroke-like symptom R29.90 Temporal lobe epilepsy G40.109
--- NOTE | 2022-11-02 14:31 | Hospitalist Progress Note ---
Date of Service November 02, 2022 Assessment & Plan (1) Ataxia: Plan: Appreciate neurological consultation and recommendations. Follow-up head CT scan #2 reveals no significant changes from head CT scan #1. Head and neck CTA negative for critical vascular stenoses. EEG remains pending. Levels of zonisamide and lamotrigine ordered and pending. MRI scan cannot be done due to presence of vagal nerve stimulator. (2) Hypokalemia: Plan: Initially corrected but trending downward again. Oral potassium ordered. Serial labs. (3) Vertigo: Plan: Continue meclizine . Supportive care (4) Seizure disorder: Plan: Continue lamictal, Zonisamide, and clobazam . Levels of Lamictal and zonisamide pending (5) Generalized anxiety disorder: Plan: continue venlafaxine (6) Dyslipidemia: Plan: continue statin therapy (7) Depression: Plan: continue venlafaxine (8) Benign essential hypertension: Plan: Hemodynamically stable . Not on antihypertensives. Continue to monitor (9) Obstructive sleep apnea: Plan: HS CPAP ordered Plan OT and PT assessments recommend rehab placement. This is what the family and the patient desire. Admission and Anticipated Discharge Date Admission Date: October 31, 2022 Subjective Alert and oriented. Lengthy discussion with patient and family who is at the bedside. Head CT scan #2 reveals no changes from head CT scan #1. Head and neck CTA negative for significant stenoses. EEG is pending. Both OT and PT recommend rehab placement. Potassium is drifting downward again and oral potassium replacement ordered. Zonisamide and lamotrigine levels are pending Review of Systems Review of Systems: Constitutional-no fever or chills ENT-no blurred vision, no double vision, no epistaxis, no sore throat Respiratory-no cough, no wheezing, no shortness of breath Cardiac-no palpitations, no chest pain, no syncope GI-no nausea, vomiting, diarrhea, melena, hematochezia -no urinary retention, no urinary incontinence, no dysuria, no hematuria Musculoskeletal-no joint pain, no muscle tenderness Skin-no bruising, no rashes, no pruritus Neuro-ataxic gait. Generalized weakness. Psych-no depression, no anxiety Physical Exam Physical Exam: General-alert and oriented x3, no fevers, no chills HEENT-head atraumatic and normocephalic, pupils equal and reactive to light, extraocular muscles intact Neck-no lymphadenopathy or thyromegaly, trachea midline Chest-clear to auscultation percussion. No rales wheezing or rhonchi Cardiac-regular rate and rhythm, normal S1 and S2, no murmurs Abdomen-normal bowel sounds, nontender, no hepatosplenomegaly Extremities-no cyanosis, clubbing, or edema Neuro-generalized weakness. No focal deficits . Ataxia noted Psych-normal affect, normal mood Results & Data Results & Data ([facility]) Vital Signs (Past 12 Hours) Vital Signs Temp Pulse Pulse Resp BP Pulse Ox O2 Del Method 11/02/22 07:42 36.6 C 78 20 120/73 95 Room Air 11/02/22 04:06 80 15 94 11/02/22 03:00 36.6 C 73 18 97/61 L 94 CPAP FiO2 11/02/22 07:42 11/02/22 04:06 21 11/02/22 03:00 Laboratory Results 11/02/22 05:26 11/02/22 05:26 PG Care Time/CCT Total # of Minutes Spent Total Time Spent with Patient: Total time spent is greater than 50% in coordination of care (as documented) at patient's floor/unit and/or counseling patient: Coding Level of Care Code 26889 Subseq Hosp Care Lvl 3 Diagnoses Ataxia R27.0 Hypokalemia E87.6 Vertigo R42 Seizure disorder G40.909 Generalized anxiety disorder F41.1 Dyslipidemia E78.5 Depression F32.9 Benign essential hypertension I10 Obstructive sleep apnea G47.33
[2022-11-02] MEDS: ATORVASTATIN 40 MG TAB PO SCH (20:48)
[2022-11-03 06:37] LABS: Hematocrit (blood only) 34.2 % (34.1-44.9); Hemoglobin 11.3 g/dl (12.0-16.0); Mean Corpuscular Hemoglobin 30.8 pg (25.0-34.0); Mean Corpuscular Volume 93.2 fL (80.0-100.0); Mean Platelet Volume 9.8 fL (9.4-12.3); Platelet Count 178 K/uL (130-400); RDW Coefficient of Variation 12.9 % (11.5-14.5); RDW Standard Deviation 44.6 fL (36.4-46.3); Red Blood Count 3.67 M/uL (3.93-5.22)
[2022-11-03 07:10] LABS: BUN Creatinine Ratio 14.5 (10-20); Calcium 8.5 mg/dl (8.5-10.1); Creatinine Clr Calc Pharmacy 73.4 ml/min; Est GFR (African American) 86.4 ml/min; Est GFR (Non-African American) 74.5 ml/min; Potassium 3.5 mmol/L (3.5-5.1)
[2022-11-03] MEDS: MECLIZINE HCL 25 MG TAB PO SCH ×2 (09:43→20:20)
[2022-11-03] MEDS: POTASSIUM CHLORIDE 10 MEQ TABCR PO SCH ×2 (09:43→20:21)
[2022-11-03] MEDS: CLOBAZAM 10 MG PO SCH ×2 (09:43→21:00)
[2022-11-03] MEDS: VENLAFAXINE HCL 37.5 MG TAB PO SCH (09:44)
[2022-11-03] MEDS: PANTOprazole 40 MG TAB PO SCH (09:44)
[2022-11-03] MEDS: MULTIVITAMIN TAB PO SCH (09:49)
[2022-11-03] MEDS: LAMOTRIGINE 50 MG PO SCH ×2 (09:50→20:19)
[2022-11-03] MEDS: ZONISAMIDE 100 MG CAPSULE PO SCH ×2 (09:50→20:23)
--- NOTE | 2022-11-03 10:04 | Neurology Progress Note ---
Date of Service November 03, 2022 Assessment & Plan (1) Temporal lobe epilepsy: (2) Stroke-like symptom: (3) Ataxia: Plan This patient, today, displays word-finding difficulties and at least an expressive aphasia. In addition there is some left arm and leg mild weakness and clumsiness compared to the right which is quite normal. She has some nystagmus with lateral gaze bilaterally left greater than right gaze but no other ocular issues. The patient has confusion (more like a delirium). I cannot entirely exclude a dementia of a mild nature. Patient does not have ataxia as much as some mild clumsiness which would be more motor pathways than cerebellar. The patient has a history of left temporal lobe origin epilepsy post left temporal lobectomy in 2016 at the [facility]. She is on multiple anticonvulsants and continues to have intermittent simple partial progressing to generalized tonic-clonic seizures. Overall, her symptoms are new compared to baseline. The etiology of her symptoms are most consistent with a right hemispheric stroke. Her symptoms on exam do not fit with a left temporal origin. The patient may have a prolonged postictal confusional state. No seizure activity was noted by nurse overnight. Although the patient stated that she bit her tongue there are no rodgers on her tongue to suggest any significant injury. Confusion, nystagmus, and clumsiness can frequently be seen with toxic anticonvulsant levels. Recommendations: 1. obtain EEG this morning. 2. Repeat CT scan of the head and compare to see if a new stroke as developed compared to admission. Unfortunately, we cannot get an MRI of the brain because of her vagal nerve stimulator. 3. lamotrigine and zonisamide levels are pending. Unfortunately it takes several days for these to come back. 4. Otherwise continue on her current doses of anticonvulsants that she takes at home. 5. speech therapy consult 6. PT and OT therapy consults 7. additional recommendations will be made after the above tests. Overall, I spent a total of 60 minutes with this case including review of records, review of CT films, direct evaluation the patient at bedside, and discussion of the case with the patient and RN at bedside, and Dr. Marie, including differential diagnosis and treatment options Admission and Anticipated Discharge Date Admission Date: November 02, 2022 Subjective Patient has no complaint of pain but does feel weak and clumsy. she feels confused. Patient called her niece, Greg Daniels, who knows her history very well. Greg is a nurse and has been following her closely. Greg states that the patient occasionally has some confusion but has good speech and alertness. Greg feels that the patient is currently more confused with slurred speech and trouble naming things (patient calls her regularly). She tells me that she had "2 auras" during the night. A typical aura will start with her right face feeling tingly and funny and then it will progress from there. She has no idea what happens with her seizures after that. She claims that she might have bit her tongue last night also. Patient tells me that she averages anywhere from no seizures in the course of a month to 2 seizures a week. She is on clobazam, Lamictal, and zonisamide. This patient had a left anterior temporal lobe resection in 2016 at the [facility]. A most recent EEG in 2019 at that institution showed left temporal focal slowing with sharp waves. She is followed for her epilepsy condition by Dr. Heri Mcrae MD, epileptologist at [facility] The patient has a vagal nerve stimulator implanted and cannot get an MRI. CT angiography of the head neck were unremarkable with no vascular stenosis or irregularities. Laboratory studies show no significant abnormalities and CBC or Chem profile. Total CK was elevated on admission over 1000 and yesterday was 741. Zonisamide and lamotrigine levels are pending. Results & Data ([facility]) Vital Signs (Past 12 Hours) Vital Signs Temp Pulse Pulse Resp BP Pulse Ox O2 Del Method 11/03/22 07:00 36.4 C L 69 18 99/63 L 92 Room Air 11/03/22 05:49 80 14 95 11/03/22 02:44 36.8 C 74 18 113/69 95 Room Air 11/02/22 23:21 36.8 C 76 18 127/79 93 Room Air 11/02/22 22:09 78 FiO2 11/03/22 07:00 11/03/22 05:49 21 11/03/22 02:44 11/02/22 23:21 11/02/22 22:09 Exam (Neuro) Physical Exam: She is awake and alert. Her speech has no obvious dysarthria but she has and a facial 0 of an expressive nature. She cannot name objects but cannot identify it when given the name. She is confused and could not figure out how to work her cell phone. Extraocular eye muscles are intact and there is nystagmus with lateral gaze bilaterally left greater than right gaze. There was no dysconjugate gaze. Sensation was intact in the face. Motor strength was symmetrical and normal in the face bilaterally with no facial droop. Tongue was midline with good strength and no lesions were noted on the tongue. Coordination was normal in the arms and legs with no ataxia with [id number] or [id number] testing. However, she was a little bit "clumsy" with [id number] testing and [id number] testing using the left limbs then she was with the right. She was somewhat slow in general and had decreased facility in the low left hand compared to the right hand. Strength was essentially 5/5 in all major muscle groups in the right arm and leg both proximally and distally with normal tone. The left arm and leg were 4+/ 5 diffusely both proximally and distally. Left foot was a little clumsier than the right. Reflexes were 2/4 in all 4 limbs and toes were downgoing with plantar stimulation bilaterally. Sensory examination was grossly intact in the limbs. Gait was not tested. PG Care Time/CCT Total # of Minutes Spent Total Time Spent with Patient: Total time spent is greater than 50% in coordination of care (as documented) at patient's floor/unit and/or counseling patient: Coding Level of Care Code 93643 Subseq Hosp Care Lvl 3 Diagnoses Temporal lobe epilepsy G40.109 Stroke-like symptom R29.90 Ataxia R27.0 Time Spent (min) 60 Comment add modifiers as able
--- NOTE | 2022-11-03 10:43 | Electroencephalogram ---
EEG Procedure Note Date of Service November 03, 2022 Start / End Times Start Time: 1010 End Time: [address] Shelby History 62-year-old with history of epilepsy and is post left temporal lobe resection in 2016 on multiple anticonvulsants. Home Medication List Medication Instructions Recorded Confirmed Type fexofenadine 60 mg tablet (Anusha 60 mg PO DAILY #60 tabs 05/09/19 10/31/22 Rx Allergy) multivitamin (Multiple Vitamins 1 tab PO DAILY 05/10/19 10/31/22 History tablet) clonazepam 0.5 mg disintegrating See Rx Instructions PO .COMPLEX 05/12/19 10/31/22 History tablet clobazam 10 mg tablet (Onfi) See Rx Instructions PO BID 11/01/19 10/31/22 His tory lamotrigine 300 mg tablet,extended 300 mg PO BID #60 tabs 01/14/21 10/31/22 Rx release 24 hr lamotrigine 50 mg tablet,extended 50 mg PO .COMPLEX #270 tabs 01/14/21 10/31/22 Rx release 24 hr zonisamide 100 mg capsule 200 mg PO BID 01/14/21 10/31/22 History (Zonegran) atorvastatin 80 mg tablet 80 mg PO QPM #90 tabs 04/02/21 10/31/22 Rx venlafaxine 37.5 mg tablet 37.5 mg PO DAILY #90 tabs 06/11/21 10/31/22 Rx meclizine 25 mg tablet 25 mg PO TID PRN dizziness #90 tabs 01/10/22 10/31/22 Rx ondansetron HCl 8 mg tablet 8 mg PO Q8H PRN nausea and 01/10/22 10/31/22 Rx vomiting #30 tabs potassium chloride 10 mEq 10 meq PO DAILY #30 tabs 01/13/22 10/31/22 Rx tablet,extended release meclizine 25 mg tablet 25 mg PO BID dizziness #180 tabs 03/27/22 10/31/22 Rx omeprazole 40 mg capsule,delayed 40 mg PO QAM #90 caps 03/27/22 10/31/22 Rx release amoxicillin 875 mg-potassium 1 tab PO BID #20 tabs 07/07/22 10/31/22 Rx clavulanate 125 mg tablet nystatin 100,000 unit/gram topical 1 applic topical TID #60 grams 09/02/22 10/31/22 Rx powder glucosamine sulf dipot 1 cap PO DAILY 10/31/22 10/31/22 History chlr,msm,chond 550 mg-C 30 mg-chalino 1 mg capsule (Glucosamine Chondroitin) Inpatient Medication List Atorvastatin Calcium (Atorvastatin 40 Mg Tab) 80 mg PO QPM [facility] Stop: 11/30/22 21:07 Last Admin: 11/02/22 20:48 Dose: 80 mg Documented By: Admin: 11/01/22 19:57 Dose: 80 mg Documented By: Admin: 10/31/22 21:54 Dose: 80 mg Documented By: Clobazam (Clobazam 10 Mg Tab) 15 mg PO HS [facility] Stop: 12/01/22 20:59 Last Admin: 11/02/22 20:48 Dose: 15 mg Documented By: Admin: 11/01/22 20:18 Dose: 15 mg Documented By: DIVYA Clobazam (Clobazam 10 Mg Tab) 10 mg PO QAM [facility] Stop: 12/01/22 08:59 Last Admin: 11/03/22 09:43 Dose: 10 mg Documented By: Admin: 11/02/22 08:59 Dose: 10 mg Documented By: Admin: 11/01/22 09:09 Dose: 10 mg Documented By: ELISSA Diclofenac Sodium (Diclofenac Sod 1% Gel 100 Gm Tube) 2 gm EXT QID [facility]; Protocol Stop: 12/01/22 08:59 Last Admin: 11/02/22 20:43 Dose: 2 gm Documented By: Admin: 11/02/22 18:09 Dose: Not Given Documented By: Admin: 11/02/22 14:17 Dose: Not Given Documented By: Admin: 11/02/22 08:00 Dose: 2 gm Documented By: Admin: 11/01/22 19:55 Dose: 2 gm Documented By: Admin: 11/01/22 16:42 Dose: Not Given Documented By: Admin: 11/01/22 16:42 Dose: 2 gm Documented By: Admin: 11/01/22 09:10 Dose: 2 gm Documented By: CC Fexofenadine HCl (Fexofenadine 60 Mg Tab) 60 mg PO DAILY [facility] Stop: 12/01/22 08:59 Last Admin: 11/02/22 08:00 Dose: 60 mg Documented By: Admin: 11/01/22 09:13 Dose: 60 mg Documented By: ELISSA Lamotrigine (Lamotrigine Er 300mg Tablet) 1 each PO BID [facility] Stop: 12/01/22 01:29 Last Admin: 11/03/22 09:49 Dose: 1 each Documented By: Admin: 11/02/22 20:47 Dose: 1 each Documented By: Admin: 11/02/22 08:00 Dose: 1 each Documented By: Admin: 11/01/22 19:55 Dose: 1 each Documented By: Admin: 11/01/22 09:11 Dose: 1 each Documented By: Admin: 11/01/22 01:52 Dose: 1 each Documented By: Lamotrigine (Lamotrigine 50mg Er Tablet) 1 each PO QAM [facility] Stop: 12/01/22 08:59 Last Admin: 11/03/22 09:50 Dose: 1 each Documented By: Admin: 11/02/22 07:59 Dose: 1 each Documented By: Admin: 11/01/22 09:13 Dose: 1 each Documented By: ELISSA Lamotrigine (Lamotrigine 50mg Er Tablet) 2 each PO HS [facility] Stop: 12/01/22 01:44 Last Admin: 11/02/22 20:46 Dose: 2 each Documented By: Admin: 11/01/22 19:56 Dose: 2 each Documented By: Admin: 11/01/22 01:51 Dose: 2 each Documented By: Meclizine HCl (Meclizine Hcl 25 Mg Tab) 25 mg PO BID [facility] Stop: 11/30/22 21:07 Last Admin: 11/03/22 09:43 Dose: 25 mg Documented By: Admin: 11/02/22 20:49 Dose: 25 mg Documented By: Admin: 11/02/22 07:58 Dose: 25 mg Documented By: Admin: 11/01/22 19:58 Dose: 25 mg Documented By: Admin: 11/01/22 09:10 Dose: 25 mg Documented By: Admin: 10/31/22 21:54 Dose: 25 mg Documented By: Multivitamins (Multivitamin Tab) 1 tab PO DAILY [facility] Stop: 12/01/22 08:59 Last Admin: 11/03/22 09:49 Dose: 1 tab Documented By: Admin: 11/02/22 07:58 Dose: 1 tab Documented By: Admin: 11/01/22 09:10 Dose: 1 tab Documented By: ELISSA Nystatin/Triamcinolone Acetonide (Nystatin/Triamcin Cr 15 Gm Tube) 1 appln EXT DAILY [facility] Stop: 12/02/22 08:59 Last Admin: 11/02/22 07:59 Dose: 1 appln Documented By: ELISSA Pantoprazole Sodium (Pantoprazole 40 Mg Tab) 40 mg PO QAM [facility] Stop: 12/01/22 08:59 Last Admin: 11/03/22 09:44 Dose: 40 mg Documented By: [facility] Admin: 11/02/22 07:59 Dose: 40 mg Documented By: Admin: 11/01/22 09:10 Dose: 40 mg Documented By: ELISSA Potassium Chloride (Potassium Chloride 10 Meq Tabcr) 10 meq PO BID [facility] Stop: 12/02/22 20:59 Last Admin: 11/03/22 09:43 Dose: 10 meq Documented By: Admin: 11/02/22 20:49 Dose: 10 meq Documented By: JUAN Venlafaxine HCl (Venlafaxine Hcl 37.5 Mg Tab) 37.5 mg PO DAILY [facility] Stop: 12/01/22 08:59 Last Admin: 11/03/22 09:44 Dose: 37.5 mg Documented By: Admin: 11/02/22 07:58 Dose: 37.5 mg Documented By: Admin: 11/01/22 09:10 Dose: 37.5 mg Documented By: ELISSA Zonisamide (Zonisamide 100 Mg Capsule) 200 mg PO BID [facility] Stop: 12/01/22 01:44 Last Admin: 11/03/22 09:50 Dose: 200 mg Documented By: Admin: 11/02/22 20:47 Dose: 200 mg Documented By: Admin: 11/02/22 07:59 Dose: 200 mg Documented By: Admin: 11/01/22 19:56 Dose: 200 mg Documented By: Admin: 11/01/22 09:11 Dose: 200 mg Documented By: Admin: 11/01/22 01:52 Dose: 200 mg Documented By: Discontinued Medications Clobazam (Clobazam 10 Mg Tab) 15 mg PO QPM [facility] Stop: 11/30/22 21:07 Last Admin: 10/31/22 21:51 Dose: Not Given Documented By: Clobazam (Clobazam 10 Mg Tab) 15 mg PO NOW ONE Stop: 11/01/22 01:31 Last Admin: 11/01/22 01:53 Dose: 15 mg Documented By: Lactated Ringer's (Lr) 1,000 mls @ 60 mls/hr IV .[id number] [facility] Stop: 11/01/22 19:01 Last Infusion: 11/01/22 16:41 Dose: 0 mls/hr Documented By: Admin: 11/01/22 06:35 Dose: 100 mls/hr Documented By: Infusion: 11/01/22 06:35 Dose: 100 mls/hr Documented By: Admin: 10/31/22 21:18 Dose: 100 mls/hr Documented By: Ioversol (Optiray 320 500ml) 117 ml IV ONCE ONE Stop: 11/01/22 17:36 Last Admin: 11/01/22 17:36 Dose: 117 ml Documented By: SALMA Miscellaneous (Lamotrigrine 50 Mg Er Tablet - Order Awaiting Action) 1 each N/A QS [facility] Stop: 11/30/22 21:29 Last Admin: 11/01/22 00:23 Dose: Not Given Documented By: Admin: 10/31/22 23:53 Dose: Not Given Documented By: Miscellaneous (Lamotrigine 300 Mg Tablet Extended Release 24hr - Order Awaiting Action) 1 each N/A QS [facility] Stop: 11/30/22 21:29 Last Admin: 11/01/22 00:23 Dose: Not Given Documented By: Admin: 10/31/22 23:53 Dose: Not Given Documented By: Miscellaneous (Zonisamide - Order Awaiting Action) 1 each N/A QS [facility] Stop: 11/30/22 21:29 Last Admin: 11/01/22 00:23 Dose: Not Given Documented By: Admin: 10/31/22 23:54 Dose: Not Given Documented By: Miscellaneous (Clobazam - Order Awaiting Action) 1 each N/A QS [facility] Stop: 11/30/22 21:29 Last Admin: 11/01/22 00:22 Dose: Not Given Documented By: Admin: 10/31/22 23:53 Dose: Not Given Documented By: Ondansetron HCl (Ondansetron Inj 2 Mg/Ml 2 Ml Vial) 4 mg IV NOW STA Stop: 10/31/22 13:31 Last Admin: 10/31/22 17:50 Dose: Not Given Documented By: RDD Ondansetron HCl (Ondansetron Inj 2 Mg/Ml 2 Ml Vial) Confirm Administered Dose 4 mg .ROUTE .STK-MED [facility] Stop: 10/31/22 17:16 Last Admin: 10/31/22 17:50 Dose: Not Given Documented By: RDD Potassium Chloride (Potassium Chloride Crtab 20 Meq Tabcr) 40 meq PO BID [facility] Stop: 10/31/22 19:45 Last Admin: 10/31/22 21:51 Dose: Not Given Documented By: Potassium Chloride (Potassium Chloride Crtab 20 Meq Tabcr) 40 meq PO Q2H [facility] Stop: 10/31/22 22:01 Last Admin: 10/31/22 23:49 Dose: 40 meq Documented By: Admin: 10/31/22 21:53 Dose: 40 meq Documented By: Potassium Chloride (Potassium Chloride 10 Meq Tabcr) 10 meq PO DAILY [facility] Stop: 12/01/22 08:59 Last Admin: 11/02/22 07:59 Dose: 10 meq Documented By: Admin: 11/01/22 09:10 Dose: 10 meq Documented By: CC Zonisamide (Zonisamide 100 Mg Capsule) 200 mg PO BID [facility] Stop: 11/30/22 21:07 Last Admin: 10/31/22 21:51 Dose: Not Given Documented By: Description This is a 21 electrode EEG with a single channel dedicated to limited EKG. The electrodes were placed in accordance with the International 10-20 system. Interpretation The predominant background activity consists of a fairly well modulated 8 Hz activity, of up to 50 mV in amplitude,seen symmetrically distributed over the posterior head regions bilaterally. This activity attenuates some with eye- opening and other alerting procedures. admixed with this background activity is fairly well modulated 6-7 hertz activity seen diffusely in all head regions. Photic stimulation was performed and elicited no change in the background activity and no abnormal responses were seen. Hyperventilation was not performed. A minimal amount of muscle and movement artifact activity contaminated the recording and did not hinder interpretation to any significant degree. Throughout the recording, no focal abnormalities, abnormal slow activity, or potentially epileptogenic discharges were seen. The patient did not enter drowsiness or sleep. In summary, despite her history of left temporal lobe surgery and epilepsy, this EEG was normal during wakefulness. No focal abnormalities, potentially epileptogenic discharges, or abnormal slow activity was seen. Clinical Correlation The abscence of potentially epileptogenic activity does not exclude a seizure disorder, since interictally, EEGs can be normal. Clinical correlation is required. [facility] Procedure Codes Indication for Procedure (1) Temporal lobe epilepsy: Neurology Neurology: 45661 EEG include record awake & drowsy
[2022-11-03] MEDS: DICLOFENAC SOD 1% GEL 100 GM TUBE EXT SCH ×4 (11:07→20:24)
[2022-11-03] MEDS: NYSTATIN/TRIAMCIN CR 15 GM TUBE EXT SCH (11:08)
[2022-11-03] MEDS: FEXOFENADINE 60 MG TAB PO SCH (11:08)
--- NOTE | 2022-11-03 11:59 | CT Scan Report ---
HEAD CT NONCONTRAST CT DOSE: 537.48 mGy.cm HISTORY: Seizure disorder. ataxia TECHNIQUE: Multiaxial CT images of the head were performed without the use of intravenous contrast. A utomated exposure control was utilized for this study. A dose lowering technique was utilized adheri ng to the principles of ALARA. Comparison: Head CT 11/18/2022. Findings: Mild mucosal thickening within the ethmoid air cells. The mastoid air cells are clear. Prio r left temporal craniotomy. There is underlying encephalomalacia of the left anterior temporal lobe. This remains unchanged. The calvarium and skull base are intact. The ventricles and sulci are within normal limits. There is no mass, hematoma, midline shift, or acute infarct. Impression: No significant change compared to the prior study. No acute intracranial abnormality. ACT 112: Negative or not required by law. Electronically signed by: Mukul Daly M.D. 11/03/2022 11:58 AM
--- NOTE | 2022-11-03 13:44 | Hospitalist Progress Note ---
Date of Service November 03, 2022 Assessment & Plan (1) Ataxia: Plan: Etiology is uncertain Could be cerebellar stroke, but unable to carry out MRI on account of a vagal stimulator Could also be due to atypical BPPV Neurology is on consult, appreciate recs EEG was done which did not show any abnormal discharges Follow up CT head without contrast PT/OT for eppleys maneuver (2) Hypokalemia: Plan: Replete (3) Vertigo: Plan: Continue meclizine . Supportive care PT/OT for Eppley maneuver (4) Seizure disorder: Plan: This patient had a left anterior temporal lobe resection in 2016 at the [facility]. A most recent EEG in 2019 at that institution showed left temporal focal slowing with sharp waves. She is followed for her epilepsy condition by Dr. Heri Mcrae MD, epileptologist at [facility] Continue lamictal, Zonisamide, and clobazam . Levels of Lamictal and zonisamide pending (5) Generalized anxiety disorder: Plan: continue venlafaxine (6) Dyslipidemia: Plan: continue statin therapy (7) Depression: Plan: continue venlafaxine (8) Benign essential hypertension: Plan: Hemodynamically stable . Not on antihypertensives. Continue to monitor (9) Obstructive sleep apnea: Plan: HS CPAP ordered Plan OT and PT assessments recommend rehab placement. This is what the family and the patient desire. Admission and Anticipated Discharge Date Admission Date: November 02, 2022 Subjective Patient seen and examined, no new complaints, still with slow speech Review of Systems Review of Systems: All systems reviewed are negative, apart from the ones contained in the history. Physical Exam Physical Exam: The patient is awake, alert and oriented 3, well developed and well nourished, normocephalic and atraumatic, lying in bed and in no acute distress. HEENT--PERRL, EOMI, mucous membranes and oropharynx mildly dry Neck--supple. No JVD. No bruits. Thyroid normal, trachea midline, no adenopathy. Heart--normal S1 and S2. No murmurs, rubs or gallops. Lungs--clear bilaterally, no respiratory distress, no accessory muscle use. Abdomen--normal bowel sounds and soft. Mild epigastric and left sided abdominal pain Extremities--no cyanosis or clubbing. No edema. Dermatologic--normal skin turgor, normal color, no abnormal lymph nodes, no rash. Neurologic--Ataxia, slow speech Rheumatologic--normal range of motion. Psychiatric--normal affect. Results & Data Results & Data ([facility]) Vital Signs (Past 12 Hours) Vital Signs Temp Pulse Pulse Resp BP Pulse Ox O2 Del Method 11/03/22 11:53 97.9 F 83 20 128/72 95 Room Air 11/03/22 07:00 97.5 F L 69 18 99/63 L 92 Room Air 11/03/22 05:49 80 14 95 11/03/22 02:44 98.2 F 74 18 113/69 95 Room Air FiO2 11/03/22 11:53 11/03/22 07:00 11/03/22 05:49 21 11/03/22 02:44 PG Care Time/CCT Total # of Minutes Spent Total Time Spent with Patient: Total time spent is greater than 50% in coordination of care (as documented) at patient's floor/unit and/or counseling patient: Coding Level of Care Code 70789 Subseq Hosp Care Lvl 2 Diagnoses Ataxia R27.0 Hypokalemia E87.6 Vertigo R42 Seizure disorder G40.909 Generalized anxiety disorder F41.1 Dyslipidemia E78.5 Depression F32.9 Benign essential hypertension I10 Obstructive sleep apnea G47.33 Time Spent (min) 35
--- NOTE | 2022-11-03 16:28 | XCELERA ---
[id number] \\[id number]_Reports\[id number]}___[id number].pdf
[2022-11-03] MEDS: ATORVASTATIN 40 MG TAB PO SCH (20:20)
[2022-11-04] MEDS: DICLOFENAC SOD 1% GEL 100 GM TUBE EXT SCH ×4 (08:18→21:25)
[2022-11-04] MEDS: MECLIZINE HCL 25 MG TAB PO SCH ×2 (08:20→21:27)
[2022-11-04] MEDS: POTASSIUM CHLORIDE 10 MEQ TABCR PO SCH ×2 (08:20→21:31)
[2022-11-04] MEDS: FEXOFENADINE 60 MG TAB PO SCH (08:20)
[2022-11-04] MEDS: MULTIVITAMIN TAB PO SCH (08:21)
[2022-11-04] MEDS: PANTOprazole 40 MG TAB PO SCH (08:21)
[2022-11-04] MEDS: VENLAFAXINE HCL 37.5 MG TAB PO SCH (08:21)
[2022-11-04] MEDS: ZONISAMIDE 100 MG CAPSULE PO SCH ×2 (08:21→21:28)
[2022-11-04] MEDS: NYSTATIN/TRIAMCIN CR 15 GM TUBE EXT SCH (08:22)
[2022-11-04] MEDS: LAMOTRIGINE 50 MG PO SCH ×2 (08:22→21:26)
--- NOTE | 2022-11-04 08:29 | Neurology Progress Note ---
Date of Service November 04, 2022 Assessment & Plan (1) Temporal lobe epilepsy: (2) Expressive aphasia: (3) Hemiparesis: Plan on November 03, the patient had obvious word-finding difficulties and an expressive aphasia. In addition, there was left arm and leg mild weakness and clumsiness compared to the right which was quite normal. She had some nystagmus with lateral gaze bilaterally left greater than right gaze but no other ocular issues. The patient had confusion (more like a delirium). I could not entirely exclude a dementia of a mild nature. Patient did not have ataxia as much as mild clumsiness which would be more motor pathways than cerebellar. Today, the patient is considerably improved with better word finding and object identification than yesterday, less confusion ( no obvious delirium today ), and no significant left-sided weakness or clumsiness. CT scan of the head this morning showed no obvious stroke and was unchanged compared to previous scan (I reviewed these films) The etiology of these symptoms is likely a right hemispheric stroke of a small nature (not seen on CT scan ). An MRI would be ideal but we cannot obtain one because of the presence of her vagal nerve stimulator. CT angiography of the head and neck unremarkable for any vascular anomalies or stenoses. The patient has a history of left temporal lobe origin epilepsy post left temporal lobectomy in 2016 at the [facility]. She is on multiple anticonvulsants and continues to have intermittent simple partial progressing to generalized tonic-clonic seizures. anticonvulsant levels are pending from November 01. 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 The patient may have had a prolonged postictal confusional state which is resolving. No seizure activity was noted by nursing overnight. EEG November 03 was largely unremarkable without even any left temporal slowing or sharp waves (that were noted in the past) Confusion, nystagmus, and clumsiness can frequently be seen with toxic anticonvulsant levels. Recommendations: 1. lamotrigine and zonisamide levels are pending. Unfortunately it takes several days for these to come back. 2. Continue on her current doses of anticonvulsants that she takes at home. 3. speech, physical, and occupational therapy consults 4. Increase activity as able. 5. consider 81 mg aspirin tablet daily. 6. Otherwise, I have no further neurologic testing or treatment recommendations to make at this time. please contact me if I can be of further assistance for this case Overall, I spent a total of 35 minutes with this case including review of records, review of CT films, direct evaluation the patient at bedside, and discussion of the case with the patient and RN at bedside, and Dr. Marie, including differential diagnosis and treatment options Admission and Anticipated Discharge Date Admission Date: November 02, 2022 Subjective Feels little bit better today but cannot tell me specifically. She is a little bit of a bifrontal headache and may be a little bit of sensation weakness or clumsiness in the left upper extremity but does admit that she feels better. She has no dizziness or lightheadedness, pain or weakness in the limbs, and no new vision issues. Blood pressure is 91/60 she is afebrile. Repeat CT scan of the head showed no change from the previous study and no obvious acute stroke. I reviewed these films. Nursing reports no new events overnight or this morning. Results & Data ([facility]) Vital Signs (Past 12 Hours) Vital Signs Temp Pulse Pulse Resp BP Pulse Ox O2 Del Method 11/04/22 07:05 77 11/04/22 04:27 36.6 C 73 16 91/61 L 95 CPAP 11/04/22 02:35 79 11 L 95 11/03/22 21:35 76 23 96 11/03/22 22:07 76 11/03/22 23:07 36.9 C 79 16 106/68 95 Room Air 11/03/22 20:27 36.9 C 92 H 16 107/71 95 Room Air FiO2 11/04/22 07:05 11/04/22 04:27 11/04/22 02:35 21 11/03/22 21:35 21 11/03/22 22:07 11/03/22 23:07 11/03/22 20:27 Exam (Neuro) Physical Exam: she is awake and alert. Speech is without dysarthria. She can name some objects and colors but other objects are difficult for her to name. When given a choice of 3 possibility she will always get the right identification. When asked her to point to a specific objects she can do that also. Her reading is a little better than yesterday but she still has trouble with sentences. Single word she can read with some hesitation but is correct. Extraocular muscles are intact without nystagmus. There is no facial droop. Tongue is midline. Neck is supple. Coordination seems normal in the arms without tremor or ataxia. I do not note the clumsiness of the left hand or left foot compared to the right side, as I did yesterday. Strength seems 5/5 diffusely in all major muscle groups in the arms and legs both proximally and distally. PG Care Time/CCT Total # of Minutes Spent Total Time Spent with Patient: Total time spent is greater than 50% in coordination of care (as documented) at patient's floor/unit and/or counseling patient: Coding Level of Care Code 10525 Subseq Hosp Care Lvl 3 Diagnoses Temporal lobe epilepsy G40.109 Expressive aphasia R47.01 Hemiparesis G81.90 Time Spent (min) 35
[2022-11-04] MEDS: CLOBAZAM 10 MG PO SCH ×2 (09:58→21:25)
--- NOTE | 2022-11-04 12:15 | Hospitalist Progress Note ---
Date of Service November 04, 2022 Assessment & Plan (1) Ataxia: Plan: Etiology is uncertain Could be due to a small cerebellar stroke, not seen on CT, but unable to carry out MRI on account of a vagal stimulator Could also be due to atypical BPPV Neurology is on consult, appreciate recs EEG was done which did not show any abnormal discharges Follow up CT head without contrast PT/OT for eppleys maneuver Continue ASA 81mg daily and Statin (2) Hypokalemia: Plan: Replete (3) Vertigo: Plan: Continue meclizine . Supportive care PT/OT for Eppley maneuver (4) Seizure disorder: Plan: This patient had a left anterior temporal lobe resection in 2016 at the [facility]. A most recent EEG in 2019 at that institution showed left temporal focal slowing with sharp waves. She is followed for her epilepsy condition by Dr. Heri Mcrae MD, epileptologist at [facility] Continue lamictal, Zonisamide, and clobazam . Levels of Lamictal and zonisamide pending (5) Generalized anxiety disorder: Plan: continue venlafaxine (6) Dyslipidemia: Plan: continue statin therapy (7) Depression: Plan: continue venlafaxine (8) Benign essential hypertension: Plan: Hemodynamically stable . Not on antihypertensives. Continue to monitor BP 121/76 today (9) Obstructive sleep apnea: Plan: HS CPAP ordered Plan OT and PT assessments recommend rehab placement. This is what the family and the patient desire. Admission and Anticipated Discharge Date Admission Date: November 02, 2022 Subjective patient seen and examined, still with slow speech, but denies any new complaints Review of Systems Review of Systems: All systems reviewed are negative, apart from the ones contained in the history. Physical Exam Physical Exam: The patient is awake, alert and oriented 3, well developed and well nourished, normocephalic and atraumatic, lying in bed and in no acute distress. HEENT--PERRL, EOMI, mucous membranes and oropharynx mildly dry Neck--supple. No JVD. No bruits. Thyroid normal, trachea midline, no adenopathy. Heart--normal S1 and S2. No murmurs, rubs or gallops. Lungs--clear bilaterally, no respiratory distress, no accessory muscle use. Abdomen--normal bowel sounds and soft. Mild epigastric and left sided abdominal pain Extremities--no cyanosis or clubbing. No edema. Dermatologic--normal skin turgor, normal color, no abnormal lymph nodes, no rash. Neurologic--Ataxia, slow speech Rheumatologic--normal range of motion. Psychiatric--normal affect. Results & Data Results & Data ([facility]) Vital Signs (Past 12 Hours) Vital Signs Temp Pulse Pulse Resp BP BP Pulse Ox 11/04/22 11:08 98.2 F 77 18 121/76 93 11/04/22 08:31 98.2 F 79 17 114/74 94 11/04/22 07:05 77 11/04/22 04:27 97.9 F 73 16 91/61 L 95 11/04/22 02:35 79 11 L 95 O2 Del Method FiO2 11/04/22 11:08 Room Air 11/04/22 08:31 Room Air 11/04/22 07:05 11/04/22 04:27 CPAP 11/04/22 02:35 21 PG Care Time/CCT Total # of Minutes Spent Total Time Spent with Patient: Total time spent is greater than 50% in coordination of care (as documented) at patient's floor/unit and/or counseling patient: Coding Level of Care Code 37151 Subseq Hosp Care Lvl 2 Diagnoses Ataxia R27.0 Hypokalemia E87.6 Vertigo R42 Seizure disorder G40.909 Generalized anxiety disorder F41.1 Dyslipidemia E78.5 Depression F32.9 Benign essential hypertension I10 Obstructive sleep apnea G47.33 Time Spent (min) 35
--- NOTE | 2022-11-04 13:41 | CT Scan Report ---
HEAD CT NONCONTRAST CT DOSE: 1228.24 mGy.cm HISTORY: Confusion. fall TECHNIQUE: Multiaxial CT images of the head were performed without the use of intravenous contrast. A utomated exposure control was utilized for this study. A dose lowering technique was utilized adheri ng to the principles of ALARA. Comparison: Head CT 11/03/2022. Findings: Postoperative changes again noted within the paranasal sinuses with mild mucosal thickening within the ethmoid air cells and maxillary sinuses. The mastoid air cells are clear. Prior left temp oral craniotomy with underlying encephalomalacia. Mild atrophy and microvascular ischemic changes are again noted. There is no mass, hematoma, midline shift, or acute infarct. Impression: No significant change compared to the prior study. No acute intracranial abnormality. ACT 112: Negative or not required by law. Electronically signed by: Mukul Daly M.D. 11/04/2022 1:39 PM
[2022-11-04] MEDS: ATORVASTATIN 40 MG TAB PO SCH (21:27)
[2022-11-05 07:00] LABS: Hematocrit (blood only) 40.5 % (34.1-44.9); Hemoglobin 13.3 g/dl (12.0-16.0); Mean Corpuscular Hemoglobin 30.8 pg (25.0-34.0); Mean Corpuscular Hgb Conc 32.8 g/dL (32.0-36.0); Mean Corpuscular Volume 93.8 fL (80.0-100.0); Mean Platelet Volume 9.7 fL (9.4-12.3); Platelet Count 234 K/uL (130-400); RDW Coefficient of Variation 12.7 % (11.5-14.5); RDW Standard Deviation 44.2 fL (36.4-46.3); Red Blood Count 4.32 M/uL (3.93-5.22); White Blood Count 5.45 K/ul (4.8-10.8)
[2022-11-05 07:31] LABS: BUN Creatinine Ratio 11.8 (10-20); Calcium 9.2 mg/dl (8.5-10.1); Creatinine Clr Calc Pharmacy 71.5 ml/min; Est GFR (African American) 83.9 ml/min; Est GFR (Non-African American) 72.4 ml/min
[2022-11-05] MEDS: DICLOFENAC SOD 1% GEL 100 GM TUBE EXT SCH ×4 (08:27→20:58)
[2022-11-05] MEDS: ZONISAMIDE 100 MG CAPSULE PO SCH ×2 (08:28→20:59)
[2022-11-05] MEDS: LAMOTRIGINE 50 MG PO SCH ×2 (08:29→21:01)
[2022-11-05] MEDS: NYSTATIN/TRIAMCIN CR 15 GM TUBE EXT SCH (08:29)
[2022-11-05] MEDS: MECLIZINE HCL 25 MG TAB PO SCH ×2 (08:30→20:59)
[2022-11-05] MEDS: FEXOFENADINE 60 MG TAB PO SCH (08:30)
[2022-11-05] MEDS: MULTIVITAMIN TAB PO SCH (08:30)
[2022-11-05] MEDS: ASPIRIN 81 MG ECTAB PO SCH (08:30)
[2022-11-05] MEDS: VENLAFAXINE HCL 37.5 MG TAB PO SCH (08:30)
[2022-11-05] MEDS: PANTOprazole 40 MG TAB PO SCH (08:30)
[2022-11-05] MEDS: POTASSIUM CHLORIDE 10 MEQ TABCR PO SCH ×2 (08:54→21:06)
[2022-11-05] MEDS: CLOBAZAM 10 MG PO SCH ×2 (08:54→21:21)
--- NOTE | 2022-11-05 12:45 | Hospitalist Progress Note ---
Date of Service November 05, 2022 Assessment & Plan (1) Ataxia: Plan: Etiology is uncertain Could be due to a small cerebellar stroke, not seen on CT, but unable to carry out MRI on account of a vagal stimulator (according to family, the stimulator has been turned off several times in the past for MRI's, however[employer] does not send technical support to hospitals and no one knows how to turn it off) Patient has actually improved with her speech, but still has ataxia Neurology is on consult, appreciate recs EEG was done which did not show any abnormal discharges Follow up CT head without contrast PT/OT Continue ASA 81mg daily and Statin (2) Hypokalemia: Plan: Replete (3) Vertigo: Plan: Continue meclizine . Supportive care PT/OT for Eppley maneuver (4) Seizure disorder: Plan: This patient had a left anterior temporal lobe resection in 2016 at the [facility]. A most recent EEG in 2019 at that institution showed left temporal focal slowing with sharp waves. She is followed for her epilepsy condition by Dr. Heri Mcrae MD, epileptologist at [facility] Continue lamictal, Zonisamide, and clobazam . Levels of Lamictal and zonisamide pending (5) Generalized anxiety disorder: Plan: continue venlafaxine (6) Dyslipidemia: Plan: continue statin therapy (7) Depression: Plan: continue venlafaxine (8) Benign essential hypertension: Plan: Hemodynamically stable . Not on antihypertensives. Continue to monitor BP 124/78 today (9) Obstructive sleep apnea: Plan: HS CPAP ordered Plan OT and PT assessments recommend rehab placement. This is what the family and the patient desire. Admission and Anticipated Discharge Date Admission Date: November 02, 2022 Subjective patient seen and examined, still with slow speech, but denies any new complaints, daughter and by the bedside Review of Systems Review of Systems: All systems reviewed are negative, apart from the ones contained in the history. Physical Exam Physical Exam: The patient is awake, alert and oriented 3, well developed and well nourished, normocephalic and atraumatic, lying in bed and in no acute distress. HEENT--PERRL, EOMI, mucous membranes and oropharynx mildly dry Neck--supple. No JVD. No bruits. Thyroid normal, trachea midline, no adenopathy. Heart--normal S1 and S2. No murmurs, rubs or gallops. Lungs--clear bilaterally, no respiratory distress, no accessory muscle use. Abdomen--normal bowel sounds and soft. Mild epigastric and left sided abdominal pain Extremities--no cyanosis or clubbing. No edema. Dermatologic--normal skin turgor, normal color, no abnormal lymph nodes, no rash. Neurologic--Ataxia, slow speech Rheumatologic--normal range of motion. Psychiatric--normal affect. Results & Data Results & Data ([facility]) Vital Signs (Past 12 Hours) Vital Signs Temp Pulse Pulse Resp BP Pulse Ox O2 Del Method 11/05/22 11:25 97.5 F L 81 20 124/78 95 Room Air 11/05/22 08:30 Room Air 11/05/22 07:57 98.2 F 76 20 120/74 93 Room Air 11/05/22 06:55 81 11/05/22 03:00 98.1 F 78 18 125/69 95 Room Air PG Care Time/CCT Total # of Minutes Spent Total Time Spent with Patient: Total time spent is greater than 50% in coordination of care (as documented) at patient's floor/unit and/or counseling patient: Coding Level of Care Code 18152 Subseq Hosp Care Lvl 2 Diagnoses Ataxia R27.0 Hypokalemia E87.6 Vertigo R42 Seizure disorder G40.909 Generalized anxiety disorder F41.1 Dyslipidemia E78.5 Depression F32.9 Benign essential hypertension I10 Obstructive sleep apnea G47.33 Time Spent (min) 35
[2022-11-05] MEDS: ATORVASTATIN 40 MG TAB PO SCH (20:58)
[2022-11-06] MEDS: MECLIZINE HCL 25 MG TAB PO SCH ×2 (07:43→21:53)
[2022-11-06] MEDS: ASPIRIN 81 MG ECTAB PO SCH (07:43)
[2022-11-06] MEDS: MULTIVITAMIN TAB PO SCH (07:44)
[2022-11-06] MEDS: PANTOprazole 40 MG TAB PO SCH (07:44)
[2022-11-06] MEDS: VENLAFAXINE HCL 37.5 MG TAB PO SCH (07:44)
[2022-11-06] MEDS: NYSTATIN/TRIAMCIN CR 15 GM TUBE EXT SCH (07:44)
[2022-11-06] MEDS: DICLOFENAC SOD 1% GEL 100 GM TUBE EXT SCH ×5 (07:45→23:29)
[2022-11-06] MEDS: FEXOFENADINE 60 MG TAB PO SCH (07:46)
[2022-11-06] MEDS: ZONISAMIDE 100 MG CAPSULE PO SCH ×2 (07:46→21:54)
[2022-11-06] MEDS: LAMOTRIGINE 50 MG PO SCH ×2 (07:50→21:53)
[2022-11-06] MEDS: POTASSIUM CHLORIDE 10 MEQ TABCR PO SCH ×2 (07:51→22:11)
[2022-11-06 08:13] LABS: Hematocrit (blood only) 38.2 % (34.1-44.9); Hemoglobin 12.4 g/dl (12.0-16.0); Mean Corpuscular Hemoglobin 30.7 pg (25.0-34.0); Mean Corpuscular Hgb Conc 32.5 g/dL (32.0-36.0); Mean Corpuscular Volume 94.6 fL (80.0-100.0); Mean Platelet Volume 9.6 fL (9.4-12.3); Platelet Count 223 K/uL (130-400); RDW Coefficient of Variation 12.8 % (11.5-14.5); RDW Standard Deviation 44.6 fL (36.4-46.3); Red Blood Count 4.04 M/uL (3.93-5.22)
[2022-11-06] MEDS: CLOBAZAM 10 MG PO SCH ×2 (08:32→22:11)
[2022-11-06 08:43] LABS: BUN Creatinine Ratio 11.1 (10-20); Creatinine Clr Calc Pharmacy 67.1 ml/min; Est GFR (African American) 78.3 ml/min; Est GFR (Non-African American) 67.6 ml/min; Potassium 4.3 mmol/L (3.5-5.1)
[2022-11-06 11:28] LABS: Lamictal(Lamotrigine) 17.3 mcg/mL (4.0-18.0); Zonisamide Zonegran 27.5 mcg/mL (10.0-40.0)
--- NOTE | 2022-11-06 14:40 | Hospitalist Progress Note ---
Date of Service November 06, 2022 Assessment & Plan (1) Ataxia: Plan: Patient admitted to the hospital on account of dysarthria and ataxia Etiology is uncertain Could be due to a small cerebellar stroke, not seen on CT, but unable to carry out MRI on account of a vagal stimulator (according to family, the stimulator has been turned off several times in the past for MRI's, however [employer] does not send technical support to hospitals and no one knows how to turn it off). Plan is to transfer patient to [place] where she had it implanted Patient has actually improved with her speech, but still has some ataxia Neurology is on consult, appreciate recs EEG was done which did not show any abnormal discharges Follow up CT head without contrast PT/OT Continue ASA 81mg daily and Statin (2) Hypokalemia: Plan: Replete (3) Vertigo: Plan: Continue meclizine . Supportive care PT/OT for Eppley maneuver (4) Seizure disorder: Plan: This patient had a left anterior temporal lobe resection in 2016 at the [facility]. A most recent EEG in 2019 at that institution showed left temporal focal slowing with sharp waves. She is followed for her epilepsy condition by Dr. Heri Mcrae MD, epileptologist at [facility] Continue lamictal, Zonisamide, and clobazam . Levels of Lamictal and zonisamide pending (5) Generalized anxiety disorder: Plan: continue venlafaxine (6) Dyslipidemia: Plan: continue statin therapy (7) Depression: Plan: continue venlafaxine (8) Benign essential hypertension: Plan: Hemodynamically stable . Not on antihypertensives. Continue to monitor BP 133/78 today (9) Obstructive sleep apnea: Plan: HS CPAP ordered Plan OT and PT assessments recommend rehab placement. This is what the family and the patient desire. However, may transfer to [place] to have her MRI done there Admission and Anticipated Discharge Date Admission Date: November 02, 2022 Subjective patient seen and examined, still with somewhat slow speech, but denies any new complaints, Review of Systems Review of Systems: All systems reviewed are negative, apart from the ones contained in the history. Physical Exam Physical Exam: The patient is awake, alert and oriented 3, well developed and well nourished, normocephalic and atraumatic, lying in bed and in no acute distress. HEENT--PERRL, EOMI, mucous membranes and oropharynx mildly dry Neck--supple. No JVD. No bruits. Thyroid normal, trachea midline, no adenopathy. Heart--normal S1 and S2. No murmurs, rubs or gallops. Lungs--clear bilaterally, no respiratory distress, no accessory muscle use. Abdomen--normal bowel sounds and soft. Mild epigastric and left sided abdominal pain Extremities--no cyanosis or clubbing. No edema. Dermatologic--normal skin turgor, normal color, no abnormal lymph nodes, no rash. Neurologic--Ataxia, slow speech Rheumatologic--normal range of motion. Psychiatric--normal affect. Results & Data Results & Data ([facility]) Vital Signs (Past 12 Hours) Vital Signs Temp Pulse Pulse Resp BP BP Pulse Ox 11/06/22 07:00 73 11/06/22 11:12 98.1 F 82 18 133/78 97 11/06/22 07:00 11/06/22 07:42 97.5 F L 73 18 128/78 95 11/06/22 03:45 70 16 96 11/06/22 03:00 97.7 F 78 18 144/81 H 97 O2 Del Method FiO2 11/06/22 07:00 11/06/22 11:12 Room Air 11/06/22 07:00 Room Air 11/06/22 07:42 Room Air 11/06/22 03:45 21 11/06/22 03:00 CPAP PG Care Time/CCT Total # of Minutes Spent Total Time Spent with Patient: Total time spent is greater than 50% in coordination of care (as documented) at patient's floor/unit and/or counseling patient: Coding Level of Care Code 83462 Subseq Hosp Care Lvl 2 Diagnoses Ataxia R27.0 Hypokalemia E87.6 Vertigo R42 Seizure disorder G40.909 Generalized anxiety disorder F41.1 Dyslipidemia E78.5 Depression F32.9 Benign essential hypertension I10 Obstructive sleep apnea G47.33 Time Spent (min) 35
[2022-11-06] MEDS ORDERED: DIPHENOXYLATE/ATROPINE 2.5/0.025MG TAB PO ONE (18:07)
[2022-11-06] MEDS: ATORVASTATIN 40 MG TAB PO SCH (21:50)
[2022-11-07] MEDS ORDERED: LOPERAMIDE HCL 2 MG CAP PO STA (00:31)
[2022-11-07] MEDS: LAMOTRIGINE 50 MG PO SCH (07:50)
[2022-11-07] MEDS: ZONISAMIDE 100 MG CAPSULE PO SCH (07:50)
[2022-11-07] MEDS: NYSTATIN/TRIAMCIN CR 15 GM TUBE EXT SCH (07:51)
[2022-11-07] MEDS: MULTIVITAMIN TAB PO SCH (07:52)
[2022-11-07] MEDS: DICLOFENAC SOD 1% GEL 100 GM TUBE EXT SCH (07:52)
[2022-11-07] MEDS: PANTOprazole 40 MG TAB PO SCH (07:52)
[2022-11-07] MEDS: MECLIZINE HCL 25 MG TAB PO SCH (07:52)
[2022-11-07] MEDS: VENLAFAXINE HCL 37.5 MG TAB PO SCH (07:52)
[2022-11-07] MEDS: ASPIRIN 81 MG ECTAB PO SCH (07:52)
[2022-11-07] MEDS: FEXOFENADINE 60 MG TAB PO SCH (07:53)
[2022-11-07] MEDS: POTASSIUM CHLORIDE 10 MEQ TABCR PO SCH (08:02)
--- NOTE | 2022-11-07 08:43 | Neurology Progress Note ---
Date of Service November 07, 2022 Assessment & Plan (1) Temporal lobe epilepsy: (2) Expressive aphasia: (3) Hemiparesis: Plan Starting November 03, the patient had increased word-finding difficulties and an expressive aphasia. In addition, there was left arm and leg mild weakness and clumsiness compared to the right which was quite normal. She had some nystagmus with lateral gaze bilaterally, left greater than right gaze, but no other ocular issues. The patient had confusion (more like a delirium). I could not entirely exclude a dementia of a mild nature. Patient did not have ataxia as much as mild clumsiness which would be more motor pathways than cerebellar. Today, November 07, the patient is considerably improved and is likely back to her baseline over the last few years. she has mild underlying memory issues,with word-finding difficulties since her surgery in 2015. her encephalopathy/ delirium has resolved and she has no increase in her left-sided symptoms like she did on admission. CT scan of the head on November 01 and then again on November 04, showed no obvious stroke and have been unchanged. The etiology of The acute symptoms was probably a very small a right hemispheric stroke (not seen on CT scan ), however I could not prove this. in any event, she is back to baseline. An MRI of the brain would be ideal, but we cannot obtain one because of the presence of her vagal nerve stimulator. we need someone who can turn this off, monitor it and turn it back on after the MRI. CT angiography of the head and neck unremarkable for any vascular anomalies or stenoses. The patient has a history of left temporal lobe origin epilepsy post left temporal lobectomy in 2016 at the [facility]. She is on multiple anticonvulsants and continues to have intermittent simple partial progressing to generalized tonic-clonic seizures. anticonvulsant levels from November 01 , were quite normal. The patient may have had a prolonged postictal confusional state which resolved, but no seizure activity was noted. EEG November 03 was largely unremarkable, without even any left temporal slowing or sharp waves (that were noted in the past) Recommendations: 1. continue lamotrigine and zonisamide at current doses 2. continue 81 mg aspirin tablet daily. 3. continue therapy, increasing activity as able. 4. There is consideration for transfer to [facility] rehabilitation hospital. 5. The patient probably should not be left alone at home after discharge (her leaves for work each day ). She wonders if she could stay with her sister or another relative 6. At this point, an MRI of the brain would be reasonable to do as an outpatient. I see no "emergency" to do this study as an inpatient anymore. Overall, I spent a total of 45 minutes with this case including review of records, direct evaluation the patient at bedside, and discussion of the case with the patient and RN at bedside, and Dr. Marie, including differential diagnosis and treatment options Admission and Anticipated Discharge Date Admission Date: November 02, 2022 Subjective Patient is doing well this morning. She is walking without difficulty. She has no pain or headache and has no vision issues. She does not feel there is any new weakness or numbness or clumsiness in her arms or legs. She feels, that she is back to her baseline which includes trouble naming and having word- finding issues with speech. She also feels that occasionally she will get some left arm and leg weakness from time to time. All of this is since her brain surgery in 2015. Nursing reports no seizures. CBC and Chem profile from November 06 was unremarkable. Blood pressure is 95/57 and she is afebrile. Anticonvulsant levels from admission November 01 were quite normal with Zonegran 27.5 (normal 10-40) and lamotrigine 17.3 (normal 4-18) Results & Data ([facility]) Vital Signs (Past 12 Hours) Vital Signs Temp Pulse Pulse Resp BP BP Pulse Ox 11/07/22 07:47 37 C 82 20 95/57 L 93 11/07/22 06:59 72 11/07/22 02:36 14 96 11/07/22 04:00 36.7 C 69 18 98/61 L 96 11/07/22 01:02 84 11/06/22 23:00 36.8 C 76 18 98/59 L 95 11/06/22 22:25 76 19 95 O2 Del Method FiO2 11/07/22 07:47 Room Air 11/07/22 06:59 11/07/22 02:36 21 11/07/22 04:00 CPAP 11/07/22 01:02 11/06/22 23:00 Room Air, CPAP 11/06/22 22:25 21 Exam (Neuro) Physical Exam: she is awake and alert. Speech is hesitant at times and she occasionally has some word-finding difficulties. When given test objects to identify she can only identify 1 or 2 by name. Otherwise she will describe the objects accurately without being able to name it. When given the choice out of 3 possibilities, she will always pick the correct name once she hears. She can read test phrases and this is much better than earlier this week. Extraocular eye muscles are intact without nystagmus. Pupils are 4 mm bilaterally reactive to light. There is no facial droop and tongue is midline. Gait has good arm swing and turns being quite stable. Coordination is normal in the arms without tremor or ataxia. Strength is 5/5 diffusely in all major muscle groups in the arms and legs both proximally and distally. There are no abnormal involuntary movements. PG Care Time/CCT Total # of Minutes Spent Total Time Spent with Patient: Total time spent is greater than 50% in coordination of care (as documented) at patient's floor/unit and/or counseling patient: Coding Level of Care Code 04939 Subseq Hosp Care Lvl 3 Diagnoses Temporal lobe epilepsy G40.109 Expressive aphasia R47.01 Hemiparesis G81.90 Time Spent (min) 45
[2022-11-07] MEDS: CLOBAZAM 10 MG PO SCH (09:06)
[2022-11-07] MEDS ORDERED: ACETAMINOPHEN 325 MG TAB PO PRN (10:37)
--- NOTE | 2022-11-07 13:37 | Discharge Summary ---
Date of Service November 07, 2022 Admission HPI Per Admitting Provider Cherelle is a 62 year old female with a PMH significant for seizure disorder S/P implanted vagal nerve stimulator and removal of a portion of her left front lobe at the [facility] approximately 8 years ago, GERD, nocturnal hypoxemia and obstructive sleep apnea, HTN, hyperlipidemia who presented to the [facility] ED on 10/31/22 for dizziness and weakness. In the ED the patient was found to be afebrile, hemodynamically stable, and stable on RA. Labs were remarkable for a CBC WNL, stable renal function, potassium of 3.2 with stable mag of 2.2. CT of the head without contrast showed "Old left postsurgical changes and encephalomalacia. No acute abnormalities and in particular no evidence of infarct or hemorrhage.". Initially the ED staff were planning on getting an MRI of the brain for further evaluation but they were unsure if she would be able to have one due to her implanted vagal nerve stimulator. We were asked to admit the patient for observation and Neurology consult for assistance with further evaluation. Prior to admission the patient was given 4 mg IV zofran. At the time of the exam the patient was resting comfortably in bed in no acute distress with her sitting bedside, history was obtained from both. They state that at baseline the patient has has intermittent memory issues, is able to ambulate short distances without the use of a walker or cane, does not have asymmetrical weakness, and has poor baseline functioning in relation to ADLs. Her states that she has not been eating or drinking well and had a mechanical fall approximately 2 days ago when she was trying to reach something in one of their cabinets. Her states that he worked the night custodian last night and found her on the ground this morning when he got home, they are not sure how long she was down for. The patient herself does not remember the details surrounding her fall. Her states that the patient has had more memory issues over the past few months, thinking that she needs to call someone on the phone who is in the house with her. She denies recent fevers, chills, headache, chest pain, SOB, abdominal pain, nausea, vomiting, diarrhea, dysuria, and hematuria. They explained that the patient follows with her Neurology at the [facility], where she had the stimulator and previous brain procedure performed. Since her procedure the patient no longer has seizures but gets auras and headaches instead. Her gave me a contact number to help coordinate a possible MRI with her Vagal Nerve Stimulator ([phone]). They deny any recent medication changes. I had a long discussion with the patient and her regarding code status, the patient wishes to be a DNR/DNI as her quality of life has been poor since her previous procedures. Her would make decisions for her if she could not make them herself. Principal Diagnosis Stroke like symptoms Discharge Exam The patient is awake, alert and oriented 3, well developed and well nourished, normocephalic and atraumatic, lying in bed and in no acute distress. HEENT--PERRL, EOMI, mucous membranes and oropharynx mildly dry Neck--supple. No JVD. No bruits. Thyroid normal, trachea midline, no adenopathy. Heart--normal S1 and S2. No murmurs, rubs or gallops. Lungs--clear bilaterally, no respiratory distress, no accessory muscle use. Abdomen--normal bowel sounds and soft. Mild epigastric and left sided abdominal pain Extremities--no cyanosis or clubbing. No edema. Dermatologic--normal skin turgor, normal color, no abnormal lymph nodes, no rash. Neurologic--Ataxia, slow speech Rheumatologic--normal range of motion. Psychiatric--normal affect. Discharge Data Allergies Allergy/AdvReac Type Severity Reaction Status Date / Time hydroxyzine Allergy Unknown unknown rxn Verified 01/10/22 13:18 prednisone Allergy Unknown unknown rxn Verified 01/10/22 13:18 paroxetine AdvReac Fatigued Verified 01/10/22 13:18 Consultations 10/31/22 18:34 ED Decision to Admit Stat 11/01/22 10:22 Consult Neurology Routine Ordered Studies 10/31/22 12:29 CT head/brain wo con Stat 11/01/22 15:56 CTA head w con [CT angio head w con] Routine CTA neck with con [CT angio neck with con] Routine Head CT [CT head/brain wo con] Routine 11/03/22 10:59 CT head/brain wo con Routine 11/04/22 12:22 CT head/brain wo con Stat Hospital Course (1) Ataxia: Patient admitted to the hospital on account of dysarthria and ataxia Etiology is uncertain Could be due to a small cerebellar stroke, not seen on CT, but unable to carry out MRI on account of a vagal stimulator (according to family, the stimulator has been turned off several times in the past for MRI's, however [employer] does not send technical support to hospitals and no one knows how to turn it off). Plan is to transfer patient to [place] where she had it implanted Now resolved, she is back to her baseline speech and movement Neurology is on consult, appreciate recs EEG was done which did not show any abnormal discharges PT/OT Continue ASA 81mg daily and Statin (2) Hypokalemia: Replete (3) Vertigo: Continue meclizine . Supportive care PT/OT for Eppley maneuver (4) Seizure disorder: This patient had a left anterior temporal lobe resection in 2016 at the [facility]. A most recent EEG in 2019 at that institution showed left temporal focal slowing with sharp waves. She is followed for her epilepsy condition by Dr. Heri Mcrae MD, epileptologist at [facility] Continue lamictal, Zonisamide, and clobazam . Levels of Lamictal and zonisamide pending (5) Generalized anxiety disorder: continue venlafaxine (6) Dyslipidemia: continue statin therapy (7) Depression: continue venlafaxine (8) Benign essential hypertension: Hemodynamically stable . Not on antihypertensives. Continue to monitor BP stable (9) Obstructive sleep apnea: HS CPAP ordered Plan SNF Outpatient MRI at [place] Total Time Total Time Spent Total Time Spent (In Minutes): 35 Discharge Plan Discharge Items Patient Disposition: Transfer Residential Fac Reason For Visit: WEAKNESS, DIZZINESS Discharge Diagnosis: Ataxia Activity: Resume your previous activity Non-emergency contact: Primary Care Provider and Neurologist Call non-emergency contact if: you have any medication questions Follow-up/Referrals: Gerardo Zarate MD [Primary Care Provider] - Diet: Regular Addtl Attending Provider Instructions: Please make appointment to follow up with your regular neurologist. You can schedule a brain MRI in a week or two Pending Studies at Discharge: No Stand-Alone Forms: My globa[employer]ly Skilled Items Patient informed of condition?: Yes DNR: Yes Discharge Level of Care: Skilled Communicable Disease: No Discharge Prognosis: Stable Lines: None Urinary Catheter: No Medications and DC Order Prescriptions: New aspirin 81 mg capsule 81 mg PO DAILY 30 Days Qty: 30 0RF Continued atorvastatin 80 mg tablet 80 mg PO QPM Qty: 90 3RF venlafaxine 37.5 mg tablet 37.5 mg PO DAILY Qty: 90 3RF potassium chloride 10 mEq tablet extended release 10 meq PO DAILY Qty: 30 5RF multivitamin [Multiple Vitamins] tablet 1 tab PO DAILY clonazepam 0.5 mg tablet,disintegrating See Rx Instructions PO .COMPLEX Label Comments: 1-2 PO after long seizure or more than one seizure in the same day. Do not exceed more than 3 tablets in the same day; Rx Instructions: 1-2 PO after long seizure or more than one seizure in the same day. Do not exceed more than 3 tablets in the same day; clobazam [Onfi] 10 mg tablet See Rx Instructions PO BID Rx Instructions: 10mg am, 15mg pm PO twice a day; fexofenadine [Anusha Allergy] 60 mg tablet 60 mg PO DAILY Qty: 60 0RF omeprazole 40 mg capsule,delayed release(DR/EC) 40 mg PO QAM Qty: 90 3RF meclizine 25 mg tablet 25 mg PO BID Qty: 180 3RF Rx Instructions: take in am and at bedtime. nystatin 100,000 unit/gram powder 1 applic topical TID Qty: 60 2RF lamotrigine 300 mg tablet extended release 24hr 300 mg PO BID Qty: 60 3RF zonisamide [Zonegran] 100 mg capsule 200 mg PO BID lamotrigine 50 mg tablet extended release 24hr 50 mg PO .COMPLEX Qty: 270 3RF Rx Instructions: 50 mg PO 1 in am and 2 in pm; meclizine 25 mg tablet 25 mg PO TID PRN (Reason: dizziness) Qty: 90 3RF ondansetron HCl 8 mg tablet 8 mg PO Q8H PRN (Reason: nausea and vomiting) Qty: 30 5RF Rx Instructions: pt does not need immediately. Glucosamine Chondroitin 550-30-1 mg Capsule 1 cap PO DAILY Discontinued amoxicillin-pot clavulanate 875-125 mg tablet 1 tab PO BID Qty: 20 0RF Discharge Orders: Discharge Order (Routine); Ordered 11/07/22 Ordered By: Shannan Marie Admission Data Admit Date/Time: 11/02/22 16:24 Attending Provider: Shannan Marie Admit Provider: Lv Weeks Primary Care Provider: Gerardo Zarate Other Providers: Lv Weeks ; Christopher Romero ; [facility] ; [facility] Other Interventions: Discharge Summary Assessment (RN) Last Done: 11/07/22 12:42 Coding Level of Care Code D/C DAY MANAGEMENT >30 MINS Diagnoses Ataxia R27.0 Hypokalemia E87.6 Vertigo R42 Seizure disorder G40.909 Generalized anxiety disorder F41.1 Dyslipidemia E78.5 Depression F32.9 Benign essential hypertension I10 Obstructive sleep apnea G47.33 Time Spent (min) 35
== END 2022-11-07 13:30 | DRG 65 ==
LOC: ED 12:14 → 2N 12:14 → SUATTDRO 18:35 → 2N 20:40 → SUATTDRO 11-02 16:24 → 2N 11-03 13:01